=== PATIENT | female | born 1990 | race Caucasian/White ===

== ENCOUNTER 2017-04-17 17:40 | Inpatient (IN) | payer OTHER ==
[~2017-04-17] VITALS: Ht 157.5 cm; Wt 99.6 kg
[2017-04-17 18:11] LABS: RED CELL DISTRIBUTION WIDTH 13.8 % (11.5-14.5)
[2017-04-17 18:19] LABS: CALCIUM 9.1 mg/dL (8.5-10.1); CARBON DIOXIDE 26.2 mmol/L (21-32); CHLORIDE SERUM 105 mmol/L (98-107); CREATININE SERUM 0.8 mg/dL (0.6-1.0); GFR1 > 60 mL/min; GLUCOSE SERUM 110 mg/dL (74-106); POTASSIUM SERUM 3.7 mmol/L (3.5-5.1); SODIUM SERUM 140 mmol/L (136-145)
[2017-04-17 18:23] LABS: ALBUMIN 3.9 g/dL (3.4-5.0); ALKALINE PHOSPHATASE 97 U/L (46-116); ALT/SGPT 57 U/L (14-59); AST/SGOT 38 U/L (15-37); BILIRUBIN TOTAL 0.3 mg/dL (0.20-1.00); TOTAL PROTEIN, SERUM 7.5 g/dL (6.4-8.2)
[2017-04-17 18:24] LABS: BASOPHIL % 0 % (0-2); PLATELET COUNT 422 x10^3mcL (130-400)
[2017-04-17] MEDS ORDERED: BUS5 PO (18:29)
[2017-04-17] MEDS ORDERED: ABILIFY5 M1 PO (18:29)
[2017-04-17] MEDS ORDERED: COLACE100 MG PO (18:30)
[2017-04-17] MEDS ORDERED: IBU400 M1 PO (18:31)
[2017-04-17] MEDS ORDERED: GOOD SENSE OMEP20 MG PO (18:32)
[2017-04-17] MEDS ORDERED: XOPENEX HF0.045 MG/1 INH (18:32)
[2017-04-17] MEDS ORDERED: DULERA1 AR2 INH (18:32)
[2017-04-17] MEDS ORDERED: SPIRIVA18 MC1 INH (18:33)
[2017-04-17] MEDS ORDERED: COMPAZINE10 M1 PO (18:33)
[2017-04-17] MEDS ORDERED: [UNRECOGNIZED DRUG - OTHER] (18:33)
[2017-04-17] MEDS ORDERED: KEN025C (18:34)
[2017-04-17] MEDS ORDERED: TRAZODONE50 M1 PO (18:34)
[2017-04-17 19:52] VITALS: BP 114/78
[2017-04-17 19:55] VITALS: Ht 157.5 cm; Wt 99.6 kg
[2017-04-17 20:55] VITALS: BP 114/78
[2017-04-18 05:42] VITALS: BP 128/93
[2017-04-18 06:27] LABS: RED CELL DISTRIBUTION WIDTH 13.6 % (11.5-14.5)
[2017-04-18 06:33] LABS: CALCIUM 9.4 mg/dL (8.5-10.1); CARBON DIOXIDE 23.4 mmol/L (21-32); CHLORIDE SERUM 104 mmol/L (98-107); CREATININE SERUM 0.9 mg/dL (0.6-1.0); GFR1 > 60 mL/min; GLUCOSE SERUM 129 mg/dL (74-106); POTASSIUM SERUM 4.5 mmol/L (3.5-5.1); SODIUM SERUM 139 mmol/L (136-145)
[2017-04-18 06:39] LABS: BASOPHIL % 0 % (0-2); PLATELET COUNT 402 x10^3mcL (130-400)
[2017-04-18 10:36] VITALS: BP 117/67
[2017-04-18 13:53] VITALS: BP 110/56
[2017-04-18 17:20] VITALS: BP 118/72
[2017-04-18 21:48] VITALS: BP 101/61
[2017-04-19 05:43] VITALS: BP 111/61
[2017-04-19 10:16] VITALS: BP 105/67
[2017-04-19 13:34] VITALS: BP 108/64
[2017-04-19 17:52] VITALS: BP 100/65
[2017-04-19 21:06] VITALS: BP 124/79
[2017-04-20 06:00] VITALS: BP 99/64
[2017-04-20 06:31] LABS: CALCIUM 8.7 mg/dL (8.5-10.1); CHLORIDE SERUM 107 mmol/L (98-107); CREATININE SERUM 0.7 mg/dL (0.6-1.0); GFR1 > 60 mL/min; GLUCOSE SERUM 137 mg/dL (74-106); SODIUM SERUM 140 mmol/L (136-145)
[2017-04-20 06:34] LABS: PLATELET COUNT 390 x10^3mcL (130-400); RED CELL DISTRIBUTION WIDTH 14.1 % (11.5-14.5)
[2017-04-20 06:55] LABS: BASOPHIL % 0 % (0-2)
[2017-04-20 10:00] VITALS: BP 104/71
[2017-04-20 11:30] VITALS: BP 104/71
[2017-04-20 13:35] VITALS: BP 120/78
== END 2017-04-20 14:56 | disposition other institution (70) | DRG 189 ==
LOC: ED 17:40 → DU 18:35
PROVIDERS: Emergency Medicine; Internal Medicine; ADMIT Internal Medicine
DX: J96.01 Acute respiratory failure with hypoxia (principal); J45.901 Unspecified asthma with (acute) exacerbation; Z68.41 Body mass index [BMI] 40.0-44.9, adult; K21.9 Gastro-esophageal reflux disease without esophagitis; Z99.81 Dependence on supplemental oxygen; Z88.8 Allergy status to other drugs, medicaments and biological substances; J20.9 Acute bronchitis, unspecified; J44.9 Chronic obstructive pulmonary disease, unspecified; E66.01 Morbid (severe) obesity due to excess calories; G47.33 Obstructive sleep apnea (adult) (pediatric)
CPT/HCPCS: 36600; 83880; J1100; J1644; J1885; J1956; J2270; J2550; J2920; J3010; J3475; J7030; J7613; J7644; Q0164

== ENCOUNTER 2017-05-03 15:45 | Emergency (ER) | payer OTHER ==
[~2017-05-03] VITALS: Ht 157.5 cm; Wt 98.9 kg
[~2017-05-03 15:45] MED LIST: ABILIFY5 M1 PO; BUS5 PO; COLACE100 MG PO; COMPAZINE10 M1 PO; DULERA1 AR2 INH; GOOD SENSE OMEP20 MG PO; IBU400 M1 PO; KEN025C; SPIRIVA18 MC1 INH; TRAZODONE50 M1 PO; XOPENEX HF0.045 MG/1 INH; [UNRECOGNIZED DRUG - OTHER]
[2017-05-03 16:31] LABS: BASOPHIL % 0.4 % (0-2); PLATELET COUNT 331 x10^3mcL (130-400); RED CELL DISTRIBUTION WIDTH 14.1 % (11.5-14.5)
[2017-05-03 16:36] LABS: CALCIUM 8.9 mg/dL (8.5-10.1); CARBON DIOXIDE 25.8 mmol/L (21-32); CHLORIDE SERUM 104 mmol/L (98-107); CREATININE SERUM 0.9 mg/dL (0.6-1.0); GFR1 > 60 mL/min; GLUCOSE SERUM 113 mg/dL (74-106); POTASSIUM SERUM 3.9 mmol/L (3.5-5.1); SODIUM SERUM 138 mmol/L (136-145)
[2017-05-03 16:41] LABS: ALBUMIN 3.4 g/dL (3.4-5.0); ALKALINE PHOSPHATASE 106 U/L (46-116); ALT/SGPT 40 U/L (14-59); AST/SGOT 19 U/L (15-37); BILIRUBIN TOTAL 0.6 mg/dL (0.20-1.00); TOTAL PROTEIN, SERUM 7.1 g/dL (6.4-8.2)
[2017-05-03 19:50] VITALS: BP 143/91
== END 2017-05-03 20:51 | disposition short-term general hospital (02) ==
LOC: ED 15:45
PROVIDERS: Emergency Medicine
DX: J96.00 Acute respiratory failure, unspecified whether with hypoxia or hypercapnia (principal); J44.1 Chronic obstructive pulmonary disease with (acute) exacerbation
CPT/HCPCS: J0456; J3475; J7040; J7050; J7613; J7644

== ENCOUNTER 2017-06-05 12:50 | Inpatient (IN) | payer OTHER ==
[~2017-06-05] VITALS: Ht 157.5 cm; Wt 102.1 kg
[2017-06-05] MEDS ORDERED: PRILOSEC OTC20 M1 PO (14:09)
[2017-06-05 14:11] LABS: PLATELET COUNT 296 x10^3mcL (130-400); RED CELL DISTRIBUTION WIDTH 13.7 % (11.5-14.5)
[2017-06-05 14:18] LABS: BASOPHIL % 0 % (0-2)
[2017-06-05 14:25] LABS: CALCIUM 7.6 mg/dL (8.5-10.1); CARBON DIOXIDE 18.4 mmol/L (21-32); CHLORIDE SERUM 109 mmol/L (98-107); GFR1 > 60 mL/min; GLUCOSE SERUM 133 mg/dL (74-106); SODIUM SERUM 142 mmol/L (136-145)
[2017-06-05 14:29] LABS: POTASSIUM SERUM 2.8 mmol/L (3.5-5.1)
[2017-06-05 14:47] LABS: AMPHETAMINE QUAL UR NONE DETECTED (NEG <=1000)
[2017-06-05 17:01] VITALS: BP 98/50
[2017-06-05 21:05] VITALS: BP 98/55
[2017-06-06 05:15] VITALS: BP 90/57
[2017-06-06 09:01] VITALS: BP 114/80
[2017-06-06 11:26] LABS: BASOPHIL % 0.3 % (0-2); PLATELET COUNT 323 x10^3mcL (130-400); RED CELL DISTRIBUTION WIDTH 13.7 % (11.5-14.5)
[2017-06-06 11:43] LABS: AMYLASE 43 U/L (25-115); CALCIUM 8.9 mg/dL (8.5-10.1); CARBON DIOXIDE 24.9 mmol/L (21-32); CHLORIDE SERUM 109 mmol/L (98-107); CHOLESTEROL 139 mg/dL (<200); CHOLESTEROL/HDL RATIO 3.4; CREATININE SERUM 0.8 mg/dL (0.6-1.0); GFR1 > 60 mL/min; GLUCOSE SERUM 112 mg/dL (74-106); HDL CHOLESTEROL 41 mg/dL (40-60); LIPASE 117 IU/L (73-393); POTASSIUM SERUM 4.2 mmol/L (3.5-5.1); SODIUM SERUM 143 mmol/L (136-145); TRIGLYCERIDES 178 mg/dL (<150)
[2017-06-06 13:00] VITALS: BP 121/85
[2017-06-06 17:50] VITALS: BP 99/66
[2017-06-06 21:04] VITALS: BP 97/56
[2017-06-06 23:48] LABS: microscopic required? NO
[2017-06-07 00:32] LABS: UA SPECIFIC GRAVITY 1.015 (1.005-1.035); urine erythrocyte NEGATIVE (NEGATIVE)
[2017-06-07 04:55] VITALS: BP 94/57
[2017-06-07 09:47] VITALS: BP 103/68
[2017-06-07 11:27] VITALS: BP 103/68
[2017-06-07] MEDS ORDERED: METOPROLOL TART25 M1 PO (13:40)
[2017-06-07 14:11] VITALS: BP 101/60
== END 2017-06-07 18:34 | disposition other institution (70) | DRG 309 ==
LOC: ED 12:50 → DU 15:05
PROVIDERS: Emergency Medicine; Internal Medicine Cardiovascular Disease; ADMIT Internal Medicine
PROC: B24BZZ4 Ultrasonography of Heart with Aorta, Transesophageal (ICD-10-PCS; principal; 2017-06-07 09:30)
DX: I49.9 Cardiac arrhythmia, unspecified (principal); I47.1 Supraventricular tachycardia; E87.2 Acidosis; J45.901 Unspecified asthma with (acute) exacerbation; J44.9 Chronic obstructive pulmonary disease, unspecified; K21.9 Gastro-esophageal reflux disease without esophagitis; E87.6 Hypokalemia; Z99.81 Dependence on supplemental oxygen; Z88.8 Allergy status to other drugs, medicaments and biological substances
CPT/HCPCS: J0153; J1885; J2250; J2270; J3010; J3480; J3490; J7030; J7050; Q0092; Q9967

== ENCOUNTER 2017-06-19 14:33 | Inpatient (IN) | payer OTHER ==
[~2017-06-19] VITALS: Ht 157.5 cm; Wt 98.1 kg
[~2017-06-19 14:33] MED LIST changes: +METOPROLOL TART25 M1 PO; +PRILOSEC OTC20 M1 PO
[2017-06-19 14:41] VITALS: Ht 157.5 cm; Wt 98.1 kg
[2017-06-19 15:12] LABS: BASOPHIL % 0.5 % (0-2); PLATELET COUNT 358 x10^3mcL (130-400); RED CELL DISTRIBUTION WIDTH 13.6 % (11.5-14.5)
[2017-06-19 15:18] LABS: CALCIUM 9.1 mg/dL (8.5-10.1); CARBON DIOXIDE 24.9 mmol/L (21-32); CHLORIDE SERUM 105 mmol/L (98-107); CREATININE SERUM 0.8 mg/dL (0.6-1.0); GFR1 > 60 mL/min; GLUCOSE SERUM 96 mg/dL (74-106); POTASSIUM SERUM 4.1 mmol/L (3.5-5.1); SODIUM SERUM 139 mmol/L (136-145)
[2017-06-19 15:23] LABS: ALBUMIN 3.7 g/dL (3.4-5.0); ALKALINE PHOSPHATASE 87 U/L (46-116); ALT/SGPT 29 U/L (14-59); AST/SGOT 21 U/L (15-37); BILIRUBIN TOTAL 0.7 mg/dL (0.20-1.00); TOTAL PROTEIN, SERUM 7.2 g/dL (6.4-8.2)
[2017-06-19 17:46] VITALS: BP 122/80
[2017-06-19 18:12] VITALS: BP 122/80
[2017-06-19 19:34] VITALS: BP 122/80
[2017-06-20 05:25] VITALS: BP 108/69
[2017-06-20 10:06] VITALS: BP 104/73
[2017-06-20 15:22] VITALS: BP 99/62
[2017-06-20 18:26] VITALS: BP 113/71
[2017-06-20 21:00] VITALS: BP 102/59
[2017-06-21 05:37] VITALS: BP 103/57
[2017-06-21 07:51] LABS: CARBON DIOXIDE 22.8 mmol/L (21-32); CHLORIDE SERUM 106 mmol/L (98-107); CREATININE SERUM 0.9 mg/dL (0.6-1.0); GFR1 > 60 mL/min; GLUCOSE SERUM 146 mg/dL (74-106); PLATELET COUNT 366 x10^3mcL (130-400); RED CELL DISTRIBUTION WIDTH 13.9 % (11.5-14.5); SODIUM SERUM 139 mmol/L (136-145)
[2017-06-21 07:52] LABS: BASOPHIL % 0 % (0-2)
[2017-06-21 10:43] VITALS: BP 110/59
[2017-06-21 13:36] VITALS: BP 110/59
[2017-06-21 14:18] VITALS: BP 104/76
== END 2017-06-21 17:00 | disposition other institution (70) | DRG 189 ==
LOC: ED 14:33 → DU 16:51
PROVIDERS: Emergency Medicine; Internal Medicine
DX: J96.20 Acute and chronic respiratory failure, unspecified whether with hypoxia or hypercapnia (principal); J44.1 Chronic obstructive pulmonary disease with (acute) exacerbation; J45.901 Unspecified asthma with (acute) exacerbation; J44.0 Chronic obstructive pulmonary disease with (acute) lower respiratory infection; I50.9 Heart failure, unspecified; J20.9 Acute bronchitis, unspecified; I11.0 Hypertensive heart disease with heart failure; F41.9 Anxiety disorder, unspecified; I25.10 Atherosclerotic heart disease of native coronary artery without angina pectoris; Z99.81 Dependence on supplemental oxygen; Z68.35 Body mass index [BMI] 35.0-35.9, adult; Z88.8 Allergy status to other drugs, medicaments and biological substances
CPT/HCPCS: 36600; 83880; 85378; 94150; J1644; J1956; J2920; J2930; J7050; J7613; J7626; J7644

== ENCOUNTER 2017-07-18 12:31 | Emergency (ER) | payer OTHER ==
[~2017-07-18] VITALS: Ht 157.5 cm; Wt 99.8 kg
[2017-07-18 12:33] VITALS: Ht 157.5 cm; Wt 99.8 kg
[2017-07-18] MEDS ORDERED: DIGOXIN0.125 M1 PO (12:59)
[2017-07-18] MEDS ORDERED: APAP500 MG PO (12:59)
[2017-07-18] MEDS ORDERED: CLOTRIMAZOLE TR10 M1 PO (12:59)
[2017-07-18] MEDS ORDERED: LAMOTRIGINE25 MG PO (13:00)
[2017-07-18] MEDS ORDERED: ATROVENT H0.017 MG/1 INH (13:00)
[2017-07-18] MEDS ORDERED: DOCUSATE SODIUM1 TA1 PO (13:00)
[2017-07-18 13:12] LABS: CALCIUM 9.4 mg/dL (8.5-10.1); CARBON DIOXIDE 24.5 mmol/L (21-32); CHLORIDE SERUM 104 mmol/L (98-107); CREATININE SERUM 0.9 mg/dL (0.6-1.0); GFR1 > 60 mL/min; GLUCOSE SERUM 101 mg/dL (74-106); POTASSIUM SERUM 3.7 mmol/L (3.5-5.1); SODIUM SERUM 140 mmol/L (136-145)
[2017-07-18 13:16] LABS: ALBUMIN 3.8 g/dL (3.4-5.0); ALKALINE PHOSPHATASE 97 U/L (46-116); ALT/SGPT 26 U/L (14-59); AST/SGOT 20 U/L (15-37); BILIRUBIN TOTAL 0.87 mg/dL (0.20-1.00); CHOLESTEROL 163 mg/dL (<200); HDL CHOLESTEROL 35 mg/dL (40-60); PHOSPHOROUS 2.6 mg/dL (2.5-4.9); TOTAL PROTEIN, SERUM 7.5 g/dL (6.4-8.2); URIC ACID 4.1 mg/dL (2.6-6.0)
[2017-07-18 13:24] LABS: BASOPHIL % 0.3 % (0-2); PLATELET COUNT 369 x10^3mcL (130-400); RED CELL DISTRIBUTION WIDTH 14.2 % (11.5-14.5)
[2017-07-18 16:10] VITALS: BP 117/69
== END 2017-07-18 16:32 | disposition home or self-care (01) ==
LOC: ED 12:31
PROVIDERS: Emergency Medicine
DX: J45.901 Unspecified asthma with (acute) exacerbation (principal); K21.9 Gastro-esophageal reflux disease without esophagitis; I50.9 Heart failure, unspecified; F43.10 Post-traumatic stress disorder, unspecified; Z88.8 Allergy status to other drugs, medicaments and biological substances
CPT/HCPCS: 36600; 83880; J1885; J2930; J7613; J7620; J7644; Q0092

== ENCOUNTER 2017-11-21 12:48 | Emergency (ER) | payer OTHER ==
[~2017-11-21] VITALS: Ht 157.5 cm; Wt 86.2 kg
[~2017-11-21 12:48] MED LIST changes: +APAP500 MG PO; +ATROVENT H0.017 MG/1 INH; +CLOTRIMAZOLE TR10 M1 PO; +DIGOXIN0.125 M1 PO; +DOCUSATE SODIUM1 TA1 PO; +LAMOTRIGINE25 MG PO
[2017-11-21 12:51] VITALS: Ht 157.5 cm; Wt 86.2 kg
[2017-11-21 13:38] LABS: BASOPHIL % 0.3 % (0-2); PLATELET COUNT 366 x10^3mcL (130-400)
[2017-11-21 13:41] LABS: RED CELL DISTRIBUTION WIDTH 15.7 % (11.5-14.5)
[2017-11-21 13:53] LABS: SODIUM SERUM 141 mmol/L (136-145)
[2017-11-21 13:55] LABS: ALBUMIN 3.1 g/dL (3.4-5.0); CARBON DIOXIDE 22.1 mmol/L (21-32); CHLORIDE SERUM 106 mmol/L (98-107); GFR1 > 60 mL/min; GLUCOSE SERUM 204 mg/dL (74-106); TOTAL PROTEIN, SERUM 6.3 g/dL (6.4-8.2)
[2017-11-21 13:56] LABS: ALKALINE PHOSPHATASE 99 U/L (46-116); ALT/SGPT 23 U/L (14-59); AST/SGOT 20 U/L (15-37); BILIRUBIN TOTAL 0.3 mg/dL (0.20-1.00); CALCIUM 7.6 mg/dL (8.5-10.1); POTASSIUM SERUM 2.6 mmol/L (3.5-5.1)
[2017-11-21] MEDS ORDERED: APAP500 MG PO (14:20)
[2017-11-21] MEDS ORDERED: BUSPIRONE HCL15 MG PO (14:21)
[2017-11-21] MEDS ORDERED: TUMS CH (14:22)
[2017-11-21] MEDS ORDERED: DIGOXIN0.25 M1 PO (14:23)
[2017-11-21] MEDS ORDERED: BENADRYL ALLERG25 M1 PO (14:24)
[2017-11-21] MEDS ORDERED: COMINH INH (14:25)
[2017-11-21] MEDS ORDERED: LAMICTAL XR50 MG PO (14:26)
[2017-11-21] MEDS ORDERED: LATUDA40 M1 PO (14:26)
[2017-11-21] MEDS ORDERED: DULERA1 AR2 INH (14:27)
[2017-11-21] MEDS ORDERED: TOPROL XL25 MG PO (14:27)
[2017-11-21] MEDS ORDERED: MONTELUKAST SOD10 M1 PO (14:28)
[2017-11-21] MEDS ORDERED: PRILOSEC OTC20 M1 PO (14:29)
[2017-11-21] MEDS ORDERED: ZOLOFT50 MG PO (14:31)
[2017-11-21] MEDS ORDERED: ZOLOFT25 MG PO (14:31)
[2017-11-21] MEDS ORDERED: TRAZODONE50 M1 PO (14:32)
[2017-11-21 18:23] VITALS: BP 129/59
== END 2017-11-21 18:23 | disposition short-term general hospital (02) ==
LOC: ED 12:48
DX: I47.1 Supraventricular tachycardia (principal); E87.6 Hypokalemia; J44.9 Chronic obstructive pulmonary disease, unspecified; Z88.8 Allergy status to other drugs, medicaments and biological substances
CPT/HCPCS: 83880; J0153; J1885; J3480; J7030; J7060; Q0092

== ENCOUNTER 2018-01-22 20:04 | Inpatient (IN) | payer OTHER ==
[~2018-01-22] VITALS: Ht 157.5 cm; Wt 84.5 kg
[~2018-01-22 20:04] MED LIST changes: +BENADRYL ALLERG25 M1 PO; +BUSPIRONE HCL15 MG PO; +COMINH INH; +DIGOXIN0.25 M1 PO; +LAMICTAL XR50 MG PO; +LATUDA40 M1 PO; +MONTELUKAST SOD10 M1 PO; +TOPROL XL25 MG PO; +TUMS CH; +ZOLOFT25 MG PO; +ZOLOFT50 MG PO
[2018-01-22 20:17] VITALS: Ht 157.5 cm; Wt 84.5 kg
[2018-01-22 21:06] LABS: BASOPHIL % 0.5 % (0-2); PLATELET COUNT 311 x10^3mcL (130-400); RED CELL DISTRIBUTION WIDTH 18.6 % (11.5-14.5)
[2018-01-22 21:18] LABS: CALCIUM 7.8 mg/dL (8.5-10.1); CARBON DIOXIDE 25.4 mmol/L (21-32); CHLORIDE SERUM 105 mmol/L (98-107); CREATININE SERUM 0.9 mg/dL (0.6-1.0); GFR1 > 60 mL/min; GLUCOSE SERUM 108 mg/dL (74-106); POTASSIUM SERUM 3.3 mmol/L (3.5-5.1); SODIUM SERUM 139 mmol/L (136-145)
[2018-01-22 21:30] LABS: ALBUMIN 3.5 g/dL (3.4-5.0); ALKALINE PHOSPHATASE 112 U/L (46-116); ALT/SGPT 20 U/L (14-59); AST/SGOT 15 U/L (15-37); BILIRUBIN TOTAL 0.4 mg/dL (0.20-1.00); FREE T4 1.12 ng/dL (0.76-1.46); LIPASE 156 IU/L (73-393); TOTAL PROTEIN, SERUM 6.7 g/dL (6.4-8.2)
[2018-01-22 21:48] LABS: AMPHETAMINE QUAL UR NONE DETECTED (See below)
[2018-01-23 01:28] LABS: MAGNESIUM 1.9 mg/dL (1.8-2.4)
[2018-01-23 02:19] VITALS: BP 110/76
[2018-01-23 05:51] VITALS: BP 110/72
[2018-01-23 07:26] LABS: microscopic required? NO
[2018-01-23 07:50] LABS: UA SPECIFIC GRAVITY <=1.005 (1.005-1.035); urine erythrocyte NEGATIVE (NEGATIVE)
[2018-01-23 11:00] VITALS: BP 138/88
[2018-01-23 18:22] VITALS: BP 115/77
[2018-01-23 21:08] VITALS: BP 120/77
[2018-01-24 05:25] VITALS: BP 105/74
[2018-01-24 07:46] LABS: CALCIUM 9.4 mg/dL (8.5-10.1); CARBON DIOXIDE 23.9 mmol/L (21-32); CHLORIDE SERUM 104 mmol/L (98-107); CREATININE SERUM 0.9 mg/dL (0.6-1.0); GFR1 > 60 mL/min; GLUCOSE SERUM 153 mg/dL (74-106); POTASSIUM SERUM 4.6 mmol/L (3.5-5.1); SODIUM SERUM 137 mmol/L (136-145)
[2018-01-24 07:48] LABS: BASOPHIL % 0.1 % (0-2); PLATELET COUNT 313 x10^3mcL (130-400)
[2018-01-24 08:06] LABS: RED CELL DISTRIBUTION WIDTH 18.6 % (11.5-14.5)
[2018-01-24 09:08] VITALS: BP 106/78
[2018-01-24 11:29] VITALS: BP 113/77
[2018-01-24 13:07] VITALS: BP 113/77
== END 2018-01-24 17:02 | disposition other institution (70) | DRG 189 ==
LOC: ED 20:04 → DU 01-23 00:50
PROVIDERS: Emergency Medicine; Internal Medicine
DX: J96.01 Acute respiratory failure with hypoxia (principal); Q33.6 Congenital hypoplasia and dysplasia of lung; I47.1 Supraventricular tachycardia; J44.1 Chronic obstructive pulmonary disease with (acute) exacerbation; J44.0 Chronic obstructive pulmonary disease with (acute) lower respiratory infection; F43.10 Post-traumatic stress disorder, unspecified; I25.10 Atherosclerotic heart disease of native coronary artery without angina pectoris; I50.9 Heart failure, unspecified; K21.9 Gastro-esophageal reflux disease without esophagitis; J20.9 Acute bronchitis, unspecified; E87.6 Hypokalemia; I48.91 Unspecified atrial fibrillation; I11.0 Hypertensive heart disease with heart failure; Z99.81 Dependence on supplemental oxygen; Z68.36 Body mass index [BMI] 36.0-36.9, adult; Z88.8 Allergy status to other drugs, medicaments and biological substances; Z82.49 Family history of ischemic heart disease and other diseases of the circulatory system; Z79.899 Other long term (current) drug therapy
CPT/HCPCS: 83880; 84439; 85378; J1644; J1956; J2270; J2920; J3010; J7040; J7620; J7626; Q0092

== ENCOUNTER 2018-03-11 20:25 | Inpatient (IN) | payer OTHER ==
[~2018-03-11] VITALS: Ht 157.5 cm; Wt 84.4 kg
[2018-03-11 20:34] VITALS: Ht 157.5 cm; Wt 84.4 kg
[2018-03-11 21:09] LABS: BASOPHIL % 0.6 % (0-2); PLATELET COUNT 345 x10^3mcL (130-400)
[2018-03-11 21:12] LABS: RED CELL DISTRIBUTION WIDTH 17.3 % (11.5-14.5)
[2018-03-11 21:19] LABS: CALCIUM 8.8 mg/dL (8.5-10.1); CHLORIDE SERUM 103 mmol/L (98-107); GFR1 > 60 mL/min; GLUCOSE SERUM 94 mg/dL (74-106); POTASSIUM SERUM 3.3 mmol/L (3.5-5.1); SODIUM SERUM 140 mmol/L (136-145)
[2018-03-11 21:23] LABS: ALBUMIN 3.8 g/dL (3.4-5.0); ALKALINE PHOSPHATASE 101 U/L (46-116); ALT/SGPT 26 U/L (14-59); AST/SGOT 19 U/L (15-37); BILIRUBIN TOTAL 0.45 mg/dL (0.20-1.00); LIPASE 97 IU/L (73-393); MAGNESIUM 1.6 mg/dL (1.8-2.4); TOTAL PROTEIN, SERUM 7.2 g/dL (6.4-8.2)
[2018-03-11 21:48] LABS: AMPHETAMINE QUAL UR NONE DETECTED (See below)
[2018-03-12] VITALS (8 sets, daily range): BP systolic 92–136; BP diastolic 55–86
[2018-03-12] MEDS ORDERED: CORLANOR5 MG PO (01:13)
[2018-03-12] MEDS ORDERED: PROA PO (01:14)
[2018-03-12] MEDS ORDERED: LOT1C TOP (01:16)
[2018-03-12] MEDS ORDERED: BUSPIRONE HCL15 MG PO (01:18)
[2018-03-12] MEDS ORDERED: BENADRYL ALLERG25 M1 PO (01:19)
[2018-03-12] MEDS ORDERED: TRAZODONE50 M1 PO (01:20)
[2018-03-12] MEDS ORDERED: LATUDA40 M1 PO (01:21)
[2018-03-12] MEDS ORDERED: XOPENEX HF0.045 MG/1 INH (01:22)
[2018-03-12] MEDS ORDERED: MAPAP500 M3 PO (01:24)
[2018-03-12 01:46] LABS: CHOLESTEROL/HDL RATIO 4.9
[2018-03-12 02:23] LABS: UA SPECIFIC GRAVITY <=1.005 (1.005-1.035); microscopic required? YES; urine erythrocyte NEGATIVE (NEGATIVE)
[2018-03-13 04:52] VITALS: BP 96/60
[2018-03-13 06:45] LABS: BASOPHIL % 0.6 % (0-2); PLATELET COUNT 323 x10^3mcL (130-400)
[2018-03-13 06:48] LABS: RED CELL DISTRIBUTION WIDTH 17.3 % (11.5-14.5)
[2018-03-13 07:08] LABS: CALCIUM 8.7 mg/dL (8.5-10.1); CARBON DIOXIDE 25.1 mmol/L (21-32); CHLORIDE SERUM 105 mmol/L (98-107); CREATININE SERUM 0.8 mg/dL (0.6-1.0); GFR1 > 60 mL/min; GLUCOSE SERUM 90 mg/dL (74-106); POTASSIUM SERUM 4.1 mmol/L (3.5-5.1); SODIUM SERUM 139 mmol/L (136-145)
[2018-03-13 09:16] VITALS: BP 101/57
[2018-03-13 13:00] VITALS: BP 123/60
[2018-03-13 16:11] VITALS: BP 115/76
[2018-03-13 17:12] VITALS: BP 116/71
[2018-03-13 20:49] VITALS: BP 105/65
[2018-03-14 05:54] VITALS: BP 101/59
[2018-03-14 08:51] VITALS: BP 117/70
[2018-03-14 12:44] VITALS: BP 111/70
[2018-03-14 13:53] VITALS: BP 111/70
[2018-03-14 14:08] VITALS: BP 111/70
== END 2018-03-14 15:25 | disposition other institution (70) | DRG 308 ==
LOC: ED 20:25 → DU 03-12 01:13 → IC 03-13 14:07 → DU 03-13 16:11
PROVIDERS: Emergency Medicine; Internal Medicine
DX: I47.1 Supraventricular tachycardia (principal); J96.20 Acute and chronic respiratory failure, unspecified whether with hypoxia or hypercapnia; T88.6XXA Anaphylactic reaction due to adverse effect of correct drug or medicament properly administered, initial encounter; E87.6 Hypokalemia; Y84.8 Other medical procedures as the cause of abnormal reaction of the patient, or of later complication, without mention of misadventure at the time of the procedure; Y92.238 Other place in hospital as the place of occurrence of the external cause; Z79.899 Other long term (current) drug therapy; E83.42 Hypomagnesemia; E78.5 Hyperlipidemia, unspecified; G47.33 Obstructive sleep apnea (adult) (pediatric); F41.9 Anxiety disorder, unspecified; J44.9 Chronic obstructive pulmonary disease, unspecified; I50.9 Heart failure, unspecified; I11.0 Hypertensive heart disease with heart failure; I25.10 Atherosclerotic heart disease of native coronary artery without angina pectoris; E11.9 Type 2 diabetes mellitus without complications; I48.91 Unspecified atrial fibrillation; I95.9 Hypotension, unspecified; Z88.8 Allergy status to other drugs, medicaments and biological substances; Z82.49 Family history of ischemic heart disease and other diseases of the circulatory system; Z79.82 Long term (current) use of aspirin; Z87.01 Personal history of pneumonia (recurrent)
CPT/HCPCS: 83880; A4570; J1200; J1885; J2270; J2785; J2920; J3475; J3490; J7030; J7626

== ENCOUNTER 2018-03-22 17:38 | Inpatient (IN) | payer OTHER ==
[~2018-03-22] VITALS: Ht 157.5 cm; Wt 82.0 kg
[~2018-03-22 17:38] MED LIST changes: +CORLANOR5 MG PO; +LOT1C TOP; +MAPAP500 M3 PO; +PROA PO
[2018-03-22 17:57] VITALS: Ht 157.5 cm; Wt 82.0 kg
[2018-03-22 18:23] LABS: BASOPHIL % 1.3 % (0-2); PLATELET COUNT 336 x10^3mcL (130-400); RED CELL DISTRIBUTION WIDTH 17.1 % (11.5-14.5)
[2018-03-22 18:47] LABS: T4(THYROXINE) 9.8 ug/dL (4.7-13.3)
[2018-03-22 19:06] LABS: CALCIUM 8.3 mg/dL (8.5-10.1); CARBON DIOXIDE 22.1 mmol/L (21-32); CHLORIDE SERUM 104 mmol/L (98-107); GFR1 > 60 mL/min; GLUCOSE SERUM 99 mg/dL (74-106); POTASSIUM SERUM 3.1 mmol/L (3.5-5.1); SODIUM SERUM 141 mmol/L (136-145)
[2018-03-22 19:11] LABS: ALBUMIN 3.7 g/dL (3.4-5.0); ALKALINE PHOSPHATASE 98 U/L (46-116); ALT/SGPT 41 U/L (14-59); AST/SGOT 24 U/L (15-37); BILIRUBIN TOTAL 0.42 mg/dL (0.20-1.00)
[2018-03-22 19:16] LABS: AMPHETAMINE QUAL UR NONE DETECTED (See below)
[2018-03-22 22:33] VITALS: BP 107/54
[2018-03-22 23:11] LABS: CHOLESTEROL/HDL RATIO 4.8; MAGNESIUM 1.8 mg/dL (1.8-2.4)
[2018-03-23 05:30] VITALS: BP 109/67
[2018-03-23 06:40] LABS: CALCIUM 9.2 mg/dL (8.5-10.1); CARBON DIOXIDE 21.5 mmol/L (21-32); CHLORIDE SERUM 106 mmol/L (98-107); CREATININE SERUM 0.9 mg/dL (0.6-1.0); GFR1 > 60 mL/min; GLUCOSE SERUM 141 mg/dL (74-106); POTASSIUM SERUM 4.6 mmol/L (3.5-5.1); SODIUM SERUM 139 mmol/L (136-145)
[2018-03-23 06:53] LABS: BASOPHIL % 0.1 % (0-2); PLATELET COUNT 355 x10^3mcL (130-400)
[2018-03-23 08:35] VITALS: BP 111/68
[2018-03-23 13:24] VITALS: BP 107/73
[2018-03-23 17:24] VITALS: BP 108/73
[2018-03-23 20:52] VITALS: BP 109/71
[2018-03-24 03:10] LABS: microscopic required? NO
[2018-03-24 03:45] LABS: UA SPECIFIC GRAVITY <=1.005 (1.005-1.035); urine erythrocyte NEGATIVE (NEGATIVE)
[2018-03-24 06:09] VITALS: BP 90/50
[2018-03-24 09:06] VITALS: BP 107/68
[2018-03-24 12:14] VITALS: BP 106/70
[2018-03-24 17:10] VITALS: BP 103/62
[2018-03-24 17:21] VITALS: BP 103/62
== END 2018-03-24 20:14 | disposition other institution (70) | DRG 310 ==
LOC: ED 17:38 → DU 21:16
PROVIDERS: Emergency Medicine; Internal Medicine
DX: I47.1 Supraventricular tachycardia (principal); F43.10 Post-traumatic stress disorder, unspecified; E87.6 Hypokalemia; G47.33 Obstructive sleep apnea (adult) (pediatric); K21.9 Gastro-esophageal reflux disease without esophagitis; J45.909 Unspecified asthma, uncomplicated; F32.9 Major depressive disorder, single episode, unspecified; F41.9 Anxiety disorder, unspecified; I50.9 Heart failure, unspecified; R09.1 Pleurisy; R06.89 Other abnormalities of breathing; Z91.041 Radiographic dye allergy status
CPT/HCPCS: 83880; J1200; J2060; J2405; J2930; J3490; Q0092

== ENCOUNTER 2018-05-16 13:17 | Inpatient (IN) | payer OTHER ==
[~2018-05-16] VITALS: Ht 157.5 cm; Wt 85.0 kg
[2018-05-16 13:21] VITALS: Ht 157.5 cm; Wt 85.0 kg
[2018-05-16 13:53] LABS: BASOPHIL % 0.6 % (0-2); PLATELET COUNT 321 x10^3mcL (130-400)
[2018-05-16 13:54] LABS: RED CELL DISTRIBUTION WIDTH 15.3 % (11.5-14.5)
[2018-05-16 14:23] LABS: CALCIUM 8.5 mg/dL (8.5-10.1); CARBON DIOXIDE 25.9 mmol/L (21-32); CHLORIDE SERUM 104 mmol/L (98-107); CREATININE SERUM 0.9 mg/dL (0.6-1.0); GFR1 > 60 mL/min; GLUCOSE SERUM 105 mg/dL (74-106); POTASSIUM SERUM 3.1 mmol/L (3.5-5.1); SODIUM SERUM 138 mmol/L (136-145)
[2018-05-16 14:46] LABS: ALBUMIN 3.7 g/dL (3.4-5.0); ALKALINE PHOSPHATASE 105 U/L (46-116); ALT/SGPT 14 U/L (14-59); AST/SGOT 6 U/L (15-37); BILIRUBIN TOTAL 0.22 mg/dL (0.20-1.00); TOTAL PROTEIN, SERUM 6.9 g/dL (6.4-8.2)
[2018-05-16 17:10] VITALS: BP 112/69
[2018-05-16 17:46] VITALS: BP 112/69
[2018-05-16 21:55] VITALS: BP 108/66
[2018-05-17 05:59] VITALS: BP 131/81
[2018-05-17 08:15] VITALS: BP 98/68
[2018-05-17 12:25] VITALS: BP 116/64
[2018-05-17 14:45] LABS: PLATELET COUNT 353 x10^3mcL (130-400)
[2018-05-17 14:52] LABS: RED CELL DISTRIBUTION WIDTH 15.7 % (11.5-14.5)
[2018-05-17 14:53] LABS: CALCIUM 9.3 mg/dL (8.5-10.1); CARBON DIOXIDE 22.9 mmol/L (21-32); CHLORIDE SERUM 104 mmol/L (98-107); GFR1 > 60 mL/min; GLUCOSE SERUM 167 mg/dL (74-106); POTASSIUM SERUM 3.8 mmol/L (3.5-5.1); SODIUM SERUM 138 mmol/L (136-145)
[2018-05-17 15:08] LABS: BAND NEUTROPHIL 8 % (0-10); BASOPHIL 0 % (0-2); MONOCYTE 2 % (0-7); SEGMENTED NEUTROPHILS 84 % (37-75); rbc morphology (normal/abnorm) ABNORMAL (NORMAL)
[2018-05-17 15:09] LABS: PLATELET MORPHOLOGY PLATELETS NORMAL
[2018-05-17 17:00] VITALS: BP 121/71
[2018-05-17 21:07] VITALS: BP 113/71
[2018-05-18 06:01] VITALS: BP 114/76
[2018-05-18 08:00] VITALS: BP 116/78
[2018-05-18 10:00] VITALS: BP 125/71
[2018-05-18 13:30] VITALS: BP 106/68
[2018-05-18 15:58] VITALS: BP 106/68
[2018-05-18 17:34] VITALS: BP 107/76
== END 2018-05-18 20:40 | disposition other institution (70) | DRG 189 ==
LOC: ED 13:17 → DU 15:32
PROVIDERS: Emergency Medicine; Internal Medicine
DX: J96.21 Acute and chronic respiratory failure with hypoxia (principal); J45.901 Unspecified asthma with (acute) exacerbation; Z88.6 Allergy status to analgesic agent; Z91.041 Radiographic dye allergy status; Z88.8 Allergy status to other drugs, medicaments and biological substances; F32.9 Major depressive disorder, single episode, unspecified; J44.9 Chronic obstructive pulmonary disease, unspecified; K21.9 Gastro-esophageal reflux disease without esophagitis; F31.9 Bipolar disorder, unspecified; F20.9 Schizophrenia, unspecified; F41.9 Anxiety disorder, unspecified; D72.829 Elevated white blood cell count, unspecified
CPT/HCPCS: 36600; J2270; J2920; J2930; J7620; Q0092; Q0163

== ENCOUNTER 2018-06-25 12:08 | Inpatient (IN) | payer OTHER | END 2018-07-02 14:15 | disposition other institution (70) | LOC: ED 12:08 → DU 13:23 → ED 12:08 → DU 13:23 → ED 12:08 → DU 13:23 → ED 12:08 → DU 13:23 → ED 12:08 → DU 13:23 | PROC: 5A09357 Assistance with Respiratory Ventilation, Less than 24 Consecutive Hours, Continuous Positive Airway Pressure (ICD-10-PCS; principal; 2018-06-27) | PROC: 5A09357 Assistance with Respiratory Ventilation, Less than 24 Consecutive Hours, Continuous Positive Airway Pressure (ICD-10-PCS; 2018-06-29) | DX: J96.01 Acute respiratory failure with hypoxia (principal); J45.901 Unspecified asthma with (acute) exacerbation; E66.2 Morbid (severe) obesity with alveolar hypoventilation; I25.10 Atherosclerotic heart disease of native coronary artery without angina pectoris; K27.9 Peptic ulcer, site unspecified, unspecified as acute or chronic, without hemorrhage or perforation; F41.9 Anxiety disorder, unspecified; E78.5 Hyperlipidemia, unspecified; Z68.36 Body mass index [BMI] 36.0-36.9, adult ==

== ENCOUNTER 2018-12-27 16:28 | Inpatient (IN) | payer OTHER ==
[~2018-12-27] VITALS: Ht 165.1 cm; Wt 81.6 kg
--- NOTE | 2018-12-27 16:39 | NUR ---
PT BIB [facility] ON BIPAP FROM [facility] FOR SOB, PT TRANSFERRED TO BED AND HOSPITAL BIPAP. PER MEDIC, PT HAD A SUDDEN ONSET OF SOB WHILE IN SHOWER THIS AFTERNOON. PT HAS HER OWN O2 WITH A NC AND WAS AT 79%. THE PT WAS PLACED ON A NRB MASK AT 15L AND WENT UP TO 87%. UPON ARRIVAL OF [facility], PT WAS PLACED ON BIPAP WITH IMPROVEMENT UP TO 99/100% UPON ARRIVAL HERE. PT HAD STATED TO [facility] PERSONEL THAT THIS EPISODE WAS LIKE HER PREVIOUS EPISODES OF COPD EXAXERBATION. PT NOTED TO BE AAOX4 WITH SHALLOW BREATHS AT 28/30 WITH ABRAHAM WHEEZING. PT ALSO WITH C/O 9/10 PAIN TO MID CHEST FROM SOB/COUGHING.
[2018-12-27 16:55] LABS: BASOPHIL % 0.7 % (0-2); PLATELET COUNT 342 x10^3mcL (130-400); RED CELL DISTRIBUTION WIDTH 14.8 % (11.5-14.5)
[2018-12-27 17:10] LABS: ALBUMIN 3.6 g/dL (3.4-5.0); ALKALINE PHOSPHATASE 118 U/L (46-116); ALT/SGPT 33 U/L (14-59); AST/SGOT 19 U/L (15-37); BILIRUBIN TOTAL 0.23 mg/dL (0.20-1.00); CALCIUM 9.5 mg/dL (8.5-10.1); CARBON DIOXIDE 20.6 mmol/L (21-32); CHLORIDE SERUM 104 mmol/L (98-107); CREATININE SERUM 0.9 mg/dL (0.6-1.0); GFR1 > 60 mL/min; GLUCOSE SERUM 157 mg/dL (74-106); SODIUM SERUM 141 mmol/L (136-145); TOTAL PROTEIN, SERUM 7.3 g/dL (6.4-8.2)
[2018-12-27 17:14] LABS: POTASSIUM SERUM 2.9 mmol/L (3.5-5.1)
--- NOTE | 2018-12-27 17:18 | NUR ---
UNABLE TO FLUSH LEFT AC IV. TOOK OUT IV AND WILL PLACE A NEW IV
--- NOTE | 2018-12-27 17:35 | NUR ---
PATIENT REQUESTS FOR BEDSIDE COMMODE. ABLE TO AMBULATE FROM [facility] TO [facility]. PATIENT ABLE TO AMBULATE FROM [facility] BACK TO [facility]
--- NOTE | 2018-12-27 17:49 | NUR ---
PATIENT STS HAVING INCREASE PAIN IN THE CHEST AND RIB AREA. MD AWARE
[2018-12-27 17:55] VITALS: BP 132/86
--- NOTE | 2018-12-27 18:04 | NUR ---
RT AT BEDSIDE DRAWING ABGS AND GIVING BREATHING TREATMENT
--- NOTE | 2018-12-27 18:35 | NUR ---
PT RESTING AT BEDSIDE IN NAD. BREATHING E/U, BILATERAL CHEST RISE. BED AT LOWEST POSITION. CALL LIGHT IN REACH. OFFICERS AT BEDSIDE. LIGHTS DIMMED TO PROMOTE PATIENT COMFORT
[2018-12-27] MEDS ORDERED: GAS RELIEF20 MG/0.3 PO (18:41)
[2018-12-27] MEDS ORDERED: LAXATIVE5 M1 PO (18:42)
[2018-12-27] MEDS ORDERED: CALCIUM CARBON650 MG PO (18:42)
[2018-12-27] MEDS ORDERED: OLANZAPINE10 MG PO (18:42)
[2018-12-27] MEDS ORDERED: FERROUS SULFAT325 M2 (18:43)
[2018-12-27] MEDS ORDERED: CHLORPROMAZINE100 M2 PO (18:43)
[2018-12-27] MEDS ORDERED: HYDROXYZINE50 M1 PO ×2 (18:44→18:45)
[2018-12-27] MEDS ORDERED: TOPROL XL25 MG PO (18:46)
[2018-12-27] MEDS ORDERED: ELOCON0.11 (18:46)
[2018-12-27] MEDS ORDERED: MONTELUKAST SOD10 M1 PO (18:46)
[2018-12-27] MEDS ORDERED: ACID REDUCER 1150 MG PO (18:47)
[2018-12-27] MEDS ORDERED: SERTRALINE100 M1 PO (18:47)
[2018-12-27] MEDS ORDERED: TRAZODONE50 M1 (18:48)
--- NOTE | 2018-12-27 19:07 | NUR ---
REPORT OFF TO SANTANA PETIT
--- NOTE | 2018-12-27 19:16 | NUR ---
REPORT RECIEVED FROM CARMELITA DILLON. PT AWAKE AND ALERT, LAYING IN POSITION OF COMFORT. OFFICERS AT BEDSIDE. AWAITING RM ASSIGNMENT.
--- NOTE | 2018-12-27 19:35 | NUR ---
REPORT GIVEN TO MADELINE DILLON
--- NOTE | 2018-12-27 19:49 | NUR ---
[facility] ACCOMPANIED BY TRANSPORTER AND 2 FEMALE SENIOR LIVING GUARDS. PT A/A/O X 4, ANXIOUS R/T HOSPITAL STAY BUT COOPERATIVE TO CARE AT THIS TIME; WEARS GLASSES (W/ PT). AMBULATORY, NO GAIT OR BALANCE IMPAIRMENT NOTED WHEN WALKING FROM GUERNEY TO BED. ON TELE # 1, HR 125, ST, C/O CONSTANT SHARP C/P FELT ON BILATERAL RIB AREAS AND MID-STERNAL CHEST 2/2 SOB AND COUGHING 8/10, MILDLY RELIEVED BY RESTING AND PAIN MEDICATIONS. LUNGS WHEEZING, SHALLOW-BREATHING, CHEST RISING EVENLY, 2LNC, 96%, PRODUCTIVE COUGH W/ SMALL AMOUNT OF YELLOW SPUTUM W/C PT STATES STARTED A WEEK AGO; SOB UPON EXERTION NOTED. IV SITE RH 20G, CDI. ORIENTED PT TO ROOM, BED CONTROLS, CALL LIGHT SYSTEM. SIDE RAILS UP X 2, BED IN LOW POSITION. BOTH SENIOR LIVING GUARDS BY BEDSIDE. WILL ENDORSE TO SANTANA CORREA.
[2018-12-27 20:05] VITALS: BP 117/70
[2018-12-28 03:15] VITALS: BP 118/76
--- NOTE | 2018-12-28 03:16 | NUR ---
NEW IV KARLEY L WRIST 20 GUAGE AFTER 2 ATTEMPTS,SECURED.FLUSHES EASY.Bassam KNUTSON WILL GIVE PAIN SHOT.
[2018-12-28 05:11] VITALS: BP 118/62
--- NOTE | 2018-12-28 05:15 | NUR ---
PT RESTE DIN INTERVALS DURING SHIFT NO ACUTE CHANGES OCCURRING OVERNIGHT. PT DENIES SOB/CP AT THIS TIME. IV SITE REMAINS PATENT TO LT WRIST, 20G. NO REDNESS, SWELLING OR PAIN NOTED. WILL CONTINUE TO MONITOR.
--- NOTE | 2018-12-28 07:30 | NUR ---
RECEIVED PT. IN BED A/A/O X3. NO SOB, NO N/V NOTED. PT. DENIES ANY PAIN AT THIS TIME. IV SITE NOTED TO L WRIST. CIW OFFICERS X2 AT BEDSIDE. SCD TO BLE MAINTAINED. BED IN LOW POS., CALL LIGHT WITHIN REACH. SIDE RAILS UP X3.
[2018-12-28 09:17] VITALS: BP 99/61
[2018-12-28 12:52] VITALS: BP 116/68
[2018-12-28 13:08] LABS: ALBUMIN 3.6 g/dL (3.4-5.0); ALKALINE PHOSPHATASE 103 U/L (46-116); ALT/SGPT 35 U/L (14-59); AST/SGOT 15 U/L (15-37); BILIRUBIN TOTAL 0.25 mg/dL (0.20-1.00); CALCIUM 10.5 mg/dL (8.5-10.1); CARBON DIOXIDE 23.4 mmol/L (21-32); CHLORIDE SERUM 106 mmol/L (98-107); CREATININE SERUM 0.9 mg/dL (0.6-1.0); GFR1 > 60 mL/min; GLUCOSE SERUM 138 mg/dL (74-106); POTASSIUM SERUM 4.5 mmol/L (3.5-5.1); SODIUM SERUM 142 mmol/L (136-145); TOTAL PROTEIN, SERUM 7.5 g/dL (6.4-8.2)
--- NOTE | 2018-12-28 13:17 | NUR ---
PT. IS BEING SEEN BY DR. BANUELOS AT THIS TIME. DR. BANUELOS WAS MADE AWARE THAT METOPROLOL PO WAS HELD THIS AM DUE TO LOW B/P (99/61). DR. BANUELOS WAS ALSO MADE AWARE THAT PT.'S H.R. HAS BEEN RANGING FROM 106 TO 126 BPM ON HEART MONITOR SINCE LAST NIGHT AND PT. IS ASYMPTOMATIC. ORDER TO GIVE 250 CC NS IV BOLUS X1 RECEIVED.
--- NOTE | 2018-12-28 17:23 | NUR ---
REMAINS IN STABLE CONDITION AT THIS TIME. WILL CONTINUE TO MONITOR.
[2018-12-28 18:05] VITALS: BP 110/72
--- NOTE | 2018-12-28 19:35 | NUR ---
PT RESTING IN BED, NO ACUTE DISTRESS NOTED. PT AOX4, DENIES HANKS/DIZZINESS. TELE #1, ST 120'S. DR. BANUELOS AWARE OF HR, WILL PROVIDE BETA XIN PER ORDER. REPORTS CP BILAT RIB CAGE, INCREASED WITH INSPIRATION. PT ON 2LNC, SHALLOW BREATHING, SLIGHT WHEEZE NOTED. WILL PAGE FOR RT BREATHING TX. PT ON SOLUMEDROL. ABD SOFT, ROUND, OBESE PT. DENIES N/V/D. PT VOIDS FREELY W/O DYSURIA. AMB. SKIN INTACT. IV SITE TO THE LT WRIST PATENT, NO REDNESS, SWELLING OR PAIN NOTED. PT ON ANTIBIOTICS. ALL COMFORT AND SAFETY MEASURES PROVIDED FOR, CALL LIGHT WITHIN REACH, BED IN LOWEST POSITION, WILL CONTINUE TO MONITOR.
[2018-12-28 20:52] VITALS: BP 140/77
--- NOTE | 2018-12-28 23:50 | NUR ---
RECEIVED A CALL FROM LAB, PT POSITIVE FOR MRSA (NARES). ISOLATION BOX IN PLACE, WILL ENDORSE THE EXPLANATION OF INFECTION WELL SIGNING OF PAPERWORK AND INITIATION OF MRSA MEDICATIONS. 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
[2018-12-29 04:59] VITALS: BP 98/57
--- NOTE | 2018-12-29 05:15 | NUR ---
PT RESTED IN INTERVALS DURING SHIFT, NO ACUTE CHANGES OCCURRING OVERNIGHT. PT REMAINS ON 2LNC, TOLERATING BREATHING TX WELL. PT BLOOD SUGAR STABLE LAST NIGHT, ONLY 151, 2 UNITS GIVEN. WILL RECHECK THIS AM. IV SITE REMAINS PATENT, TO LT WRIST, SALINE LOCKED. PT TOLERATING ANTIBIOTICS WELL. ALL COMFORT AND SAFETY MEASURES PROVIDED FOR, CALL LIGHT WITHIN REACH, BED IN LOWEST POSITION, WILL CONTINUE TO MONITOR.
[2018-12-29 06:22] LABS: CALCIUM 9.6 mg/dL (8.5-10.1); CHLORIDE SERUM 105 mmol/L (98-107); CREATININE SERUM 0.9 mg/dL (0.6-1.0); GFR1 > 60 mL/min; GLUCOSE SERUM 187 mg/dL (74-106); SODIUM SERUM 141 mmol/L (136-145)
[2018-12-29 06:26] LABS: BASOPHIL % 0 % (0-2); PLATELET COUNT 427 x10^3mcL (130-400); RED CELL DISTRIBUTION WIDTH 14.9 % (11.5-14.5)
--- NOTE | 2018-12-29 08:00 | NUR ---
ALERT AND ORIENTED. BREATHING FREELY ON RA. LUNG SOUNDS DIMINISHED. RECEIVES RT. DOES NOT APPEAR TO BE IN ANY DISTRESS AT THIS TIME. SL TO RT HAND PATENT. CIW PT. GUARDS X 2 IN ROOM. RT ANKLE SHACKLED TO BED. INDEPENDENT W ADL'S. CALL LIGHT WITH IN REACH.
[2018-12-29 08:13] VITALS: BP 105/65
[2018-12-29 10:03] VITALS: Ht 165.1 cm; Wt 81.6 kg
[2018-12-29 12:50] VITALS: BP 93/59
[2018-12-29 16:35] VITALS: BP 109/71
--- NOTE | 2018-12-29 17:58 | NUR ---
RESTING QUIETLY ON 02 2L NC. ASKS FOR MORPHINE AND NORCO FOR DIAPHRAGM AREA PAIN WITH GOOD EFFECT. GOOD APPETITE. STARTED ON BACTROBAN AND HIBICLENS BATH TODAY. VSS. INDEPENDENT W ADL'S. IF TO LEFT HAND HL'D. CONTINUES ON LEVAQUIN, SOLUMEDROL AND RT PROTOCOL. CALL LIGHT WITHIN REACH.
--- NOTE | 2018-12-29 19:26 | NUR ---
PT RECEIVED A/O X4, ABLE TO MAKE NEEDS KNOWN. TELE #1, DENIES ANY CP/PRESURE. PULSES PALAPBLE, NO EDEMA PRESENT. LUNG SOUNDS DIM ABRAHAM, BREATHING IS EVEN AND UNLABORED ON 2L NC, DENIES SOB, NO RESP DISTRESS NOTED. ABD SOFT AND NONDISTENDED, DENIES N/V. VOIDS FREELY, BRP. AMBULATORY WITH STEADY GAIT. SKIN IS WARM AND DRY, INTACT. PT DENIES HAVING ANY PAIN AT THIS TIME. IV TO LH, PATENT AND INTACT, SITE WNL. NO ACUTE DISTRESS NOTED. GUARDS AT BEDSIDE. BED IN LOWEST SETTING, SIDE RAILS UP X2, CALL LIGHT WITHIN REACH. WILL CONT TO MONITOR.
[2018-12-29 20:56] VITALS: BP 117/83
--- NOTE | 2018-12-29 23:32 | NUR ---
PT C/O 8/10 CHEST DISCOMFORT, PRN MORPHINE IVP GIVEN ORDERED. NO ACUTE DISTRESS NOTED. CALL LIGHT WITHIN REACH. WILL CONT TO MONITOR.
[2018-12-30] VITALS (7 sets, daily range): BP systolic 102–111; BP diastolic 60–74
--- NOTE | 2018-12-30 01:34 | NUR ---
PT C/O DIFFICULTY SLEEPING, PRN AMBIEN GIVEN ORDERED. NO ACUTE DISTRESS NOTED. GUARDS AT BEDSIDE. CALL LIGHT WITHIN REACH. WILL CONT TO MONITOR.
--- NOTE | 2018-12-30 06:14 | NUR ---
PT SLEPT AT INTERVALS THROUGHOUT THE EVENING. BREATHING IS EVEN AND UNLABORED ON 2L NC, NO RESP DISTRESS NOTED. PT C/O 6-12/31 CHEST DISCOMFORT, PRN MORPHINE IVP GIVEN ORDERED. IV TO LH, PATENT AND INTACT, SITE WNL. NO ACUTE CHANGES ENCOUNTERED DURING SHIFT. ALL NEEDS MET AND ANTICIPATED. PT COMPLIANT WITH NURSING CARE. GUARDS AT BEDSIDE. CALL LIGHT WITHIN REACH. WILL ENDORSE CARE TO AM NURSE.
[2018-12-30 07:18] LABS: BASOPHIL % 0.1 % (0-2)
[2018-12-30 07:27] LABS: CALCIUM 9.5 mg/dL (8.5-10.1); CARBON DIOXIDE 27.6 mmol/L (21-32); CHLORIDE SERUM 105 mmol/L (98-107); CREATININE SERUM 0.7 mg/dL (0.6-1.0); GFR1 > 60 mL/min; GLUCOSE SERUM 123 mg/dL (74-106); POTASSIUM SERUM 4.2 mmol/L (3.5-5.1); SODIUM SERUM 141 mmol/L (136-145)
[2018-12-30 07:31] LABS: PLATELET COUNT 426 x10^3mcL (130-400); RED CELL DISTRIBUTION WIDTH 15.1 % (11.5-14.5)
--- NOTE | 2018-12-30 08:10 | NUR ---
PATIENT IS IN BED, BED IS TO THE LOWEST POSITION. PATIENT IS A/O X 4. PATIENT IS ON 2 L NASAL CANNULA. PATIENT IS BREATHING ADEQUATELY AND THERE ARE NO SIGNS OF RESPIRATORY DISTRESS. IV ACCESS IS NOTED TO L HAND. SKIN IS INTACT, NO WOUNDS NOTED. PER NIGHT NURSE PATIENT IS ABLE TO AMBULATE TO THE RESTROOM WITH ASSISTANCE. PATIENTS CALL LIGHT IS WITHIN REACH, HEELS ARE OFF LOADED WITH PILLOWS. WILL CONTINUE TO MONITOR.
--- NOTE | 2018-12-30 09:13 | NUR ---
PATIENT STATED THAT THEY HAVE A 7/10 PAIN IN THEIR ABD AREA. PATIENT MEDICATED, SEE EMAR. WILL REASSESS.
--- NOTE | 2018-12-30 10:13 | NUR ---
PATIENT REASSESSED, AND STATED THAT THEY PAIN HAS LESSENED AT THIS TIME. WILL CONTINUE TO MONITOR.
--- NOTE | 2018-12-30 14:56 | NUR ---
PATIENT COMPLAINING OF PAIN AT THIS TIME. MEDICATION GIVEN, SEE EMAR. WILL REASSESS.
--- NOTE | 2018-12-30 15:03 | NUR ---
PATIENT IN BED AT THIS TIME, STATES TO NOT HAVE ANY PAIN. WILL CONTINUE TO MONITOR.
--- NOTE | 2018-12-30 18:32 | NUR ---
PATIENT IN BED, RESTING COMFORTABLY. PATIENT STATES NO PAIN AT THIS TIME AND IS FREE OF DISTRESS. WILL CONTINUE TO MONITOR.
--- NOTE | 2018-12-30 19:10 | NUR ---
PT RECEIVED A/O X4, ABLE TO MAKE NEEDS KNOWN. TELE #1, DENIES ANY CP/PRESURE. PULSES PALAPBLE, NO EDEMA PRESENT. LUNG SOUNDS DIM ABRAHAM, BREATHING IS EVEN AND UNLABORED ON 2L NC WITH HUM, DENIES SOB, NO RESP DISTRESS NOTED. ABD SOFT AND NONDISTENDED, DENIES N/V. VOIDS FREELY, BRP. AMBULATORY WITH STEADY GAIT. SKIN IS WARM AND DRY, INTACT. PT DENIES HAVING ANY PAIN AT THIS TIME. IV TO LH, PATENT AND INTACT, SITE WNL. NO ACUTE DISTRESS NOTED. GUARDS AT BEDSIDE. BED IN LOWEST SETTING, SIDE RAILS UP X2, CALL LIGHT WITHIN REACH. WILL CONT TO MONITOR.
--- NOTE | 2018-12-30 21:42 | NUR ---
PT C/O 01/31 "RIB PAIN," PRN MORPHINE GIVEN ORDERED. NO ACUTE DISTRESS NOTED. CALL LIGHT WITHIN REACH. WILL CONT TO MONITOR.
--- NOTE | 2018-12-31 00:30 | NUR ---
PT C/O DIFFICULTY SLEEPING, PRN AMBIEN GIVEN ORDERED. NO ACUTE DISTRESS NOTED. CALL LIGHT WITHIN REACH. WILL CONT TO MONITOR.
[2018-12-31 05:04] VITALS: BP 103/62
--- NOTE | 2018-12-31 06:19 | NUR ---
PT SLEPT WELL THROUGHOUT THE EVENING. BREATHING IS EVEN AND UNLABORED, NO RESP DISTRESS NOTED. PT C/O 12/01 "RIB PAIN," PRN NORCO GIVEN ORDERED. NO ACUTE CHANGES ENCOUNTERED DURING SHIFT. ALL NEEDS MET AND ANTICIPATED. IV TO LW, PATENT AND INTACT, SITE WNL. GUARDS AT BEDSIDE. CALL LIGHT WITHIN REACH. WILL ENDORSE CARE TO AM NURSE.
[2018-12-31 06:56] LABS: CALCIUM 9.3 mg/dL (8.5-10.1); CARBON DIOXIDE 27.5 mmol/L (21-32); CHLORIDE SERUM 104 mmol/L (98-107); CREATININE SERUM 0.7 mg/dL (0.6-1.0); GFR1 > 60 mL/min; GLUCOSE SERUM 127 mg/dL (74-106); POTASSIUM SERUM 4.3 mmol/L (3.5-5.1); SODIUM SERUM 141 mmol/L (136-145)
--- NOTE | 2018-12-31 07:13 | NUR ---
PT IN NO ACUTE DISTRESS. CONTINUITY OF CARE ENDORSED TO JOSEFINA DILLON. ALL QUESTIONS AND CONCERNS ADDRESSED.
[2018-12-31 07:27] LABS: PLATELET COUNT 421 x10^3mcL (130-400)
--- NOTE | 2018-12-31 08:00 | NUR ---
RECEIVED PATIENT REQUESTING PAIN MEDICATION. SHE HAS PAIN AT TIME TO THE CHEST AND HAS BEEN WITH WHEEZING AND RALES NOTED TO THE LUNGS BILATERALY. WITH HISTOYR OF ASTHMA AND HAS BEEN HERE AT [facility] ON SEVERAL OCCASIONS DUE TO HER ASTHMA. GUARDS AT BEDSIDE AND SECURITY HAS BEEN MAINTAINED. PATIEN TIS GROSSLY OBESE AND WITH EDEMA TO THE LOWER EXTREMITIES NOTED. PATIENT HAS BEEN WITHOUT A FEVER AND CONTINUED ON SOLUMEDROL, GLUCOSE CHECKS AND BLOOD SUGAR AT 127 A 530AM. VITALS ARE STABLE AT 97.3, 84, 18, 103/62, 96% ON ROOM AIR. SEEN BY DR PENA THIS AM AND HAS BEEN OOB AND TOELRATED WELL. WILL CONTINUE TO MONITOR INDICATED. TOLERATED DIET AND FLUIDS WELL.
[2018-12-31 09:27] VITALS: BP 97/58
[2018-12-31 10:15] VITALS: BP 103/62
[2018-12-31 11:47] LABS: BAND NEUTROPHIL 3 % (0-10); BASOPHIL 0 % (0-2); MONOCYTE 3 % (0-7); SEGMENTED NEUTROPHILS 88 % (37-75)
[2018-12-31 11:49] LABS: PLATELET MORPHOLOGY PLATELETS INCREASED
[2018-12-31 12:45] VITALS: BP 111/65
--- NOTE | 2018-12-31 12:46 | NUR ---
GAVE NORCO FOR PAIN EARLIER AND EFFECTIVE AT THIS TME GAVE DISCHARGE PACKET TO THE GUARDS AND THE IV AND TELE REMOVED INDICATED.
--- NOTE | 2018-12-31 13:39 | NUR ---
GAVE PACKET TO THE GUARD INDICATED AND AWAITING DELICIA CAR FOR MARKET RESEARCH INTERN. THE PATIEN NICKOLAS GOOD RELIEF FRM PAIN WITH THE NORCO GIVEN.
--- NOTE | 2018-12-31 15:30 | NUR ---
PATIENT DISCHARGED BACK TO [facility] WITH ALL BLONGINGS AND IN NO ACUTE RESPIRATORY DISTRESS AT THIS TIME.
== END 2018-12-31 14:57 | disposition other institution (70) | DRG 189 ==
LOC: ED 16:28 → DU 18:42 → EDBEDREQ 18:42 → DU 19:49
PROVIDERS: Emergency Medicine; ADMIT Internal Medicine
DX: J96.01 Acute respiratory failure with hypoxia (principal); J44.1 Chronic obstructive pulmonary disease with (acute) exacerbation; J45.901 Unspecified asthma with (acute) exacerbation; J44.0 Chronic obstructive pulmonary disease with (acute) lower respiratory infection; I50.9 Heart failure, unspecified; I11.0 Hypertensive heart disease with heart failure; J20.9 Acute bronchitis, unspecified; I48.91 Unspecified atrial fibrillation; F41.9 Anxiety disorder, unspecified; R73.9 Hyperglycemia, unspecified; D72.829 Elevated white blood cell count, unspecified; E87.6 Hypokalemia; G47.33 Obstructive sleep apnea (adult) (pediatric); Z68.29 Body mass index [BMI] 29.0-29.9, adult; Z88.8 Allergy status to other drugs, medicaments and biological substances; Z91.041 Radiographic dye allergy status; Z88.6 Allergy status to analgesic agent; Z79.899 Other long term (current) drug therapy
CPT/HCPCS: 36600; 82962; 83880; 85378; 94150; G0378; J1644; J1815; J1956; J2270; J2920; J2930; J3010; J3475; J7030; J7613; J7620; J7626; Q0092; Q0161

== ENCOUNTER 2019-01-15 15:49 | Inpatient (IN) | payer OTHER ==
[~2019-01-15] VITALS: Ht 149.9 cm; Wt 127.0 kg
[~2019-01-15 15:49] MED LIST changes: +ACID REDUCER 1150 MG PO; +CALCIUM CARBON650 MG PO; +CHLORPROMAZINE100 M2 PO; +ELOCON0.11; +FERROUS SULFAT325 M2; +GAS RELIEF20 MG/0.3 PO; +HYDROXYZINE50 M1 PO; +LAXATIVE5 M1 PO; +OLANZAPINE10 MG PO; +SERTRALINE100 M1 PO; +TRAZODONE50 M1
--- NOTE | 2019-01-15 15:58 | NUR ---
PT BROUGHT IN BY [facility] WITH C/O SOB SINCE TODAY AT 1300 PT, PT COMES FROM [facility]. CORRECTION GAUR AT BEDSIDE. PT REPORTS NON-PRODUCTIVE COUGH. AT BEDSIDE PT IS AAOX4. RESPS LABORED. PT PLACE ON BIPAP PRIOR TO ARRIVAL. PT PLACED ON FULL REVENUE INVESTIGATOR BED RAIL UP X1 FOR SAFETY. PT ORIENTED TO ROOM, USE OF CALL SOLARES, AND BED IN LOWEST POSITION. PT CALM AND COOPERATIVE. NO C/O OF N/V/D OR FEVER. PT SPEAKING IN FULL SENTENCES. MSE COMPLETED BY DR. CRAIG
[2019-01-15 16:21] LABS: BASOPHIL % 0.5 % (0-2); PLATELET COUNT 371 x10^3mcL (130-400); RED CELL DISTRIBUTION WIDTH 15.1 % (11.5-14.5)
[2019-01-15 16:28] LABS: CALCIUM 9.3 mg/dL (8.5-10.1); CHLORIDE SERUM 105 mmol/L (98-107); CREATININE SERUM 0.9 mg/dL (0.6-1.0); GFR1 > 60 mL/min; GLUCOSE SERUM 104 mg/dL (74-106); POTASSIUM SERUM 3.6 mmol/L (3.5-5.1); SODIUM SERUM 139 mmol/L (136-145)
[2019-01-15 16:33] LABS: ALBUMIN 3.6 g/dL (3.4-5.0); ALKALINE PHOSPHATASE 118 U/L (46-116); ALT/SGPT 47 U/L (14-59); AST/SGOT 18 U/L (15-37); BILIRUBIN TOTAL 0.66 mg/dL (0.20-1.00); TOTAL PROTEIN, SERUM 7.5 g/dL (6.4-8.2)
--- NOTE | 2019-01-15 16:49 | NUR ---
PT C/O PAIN, DR. CRAIG MADE AWARE, HE WILL GO AND TALK TO PT.
--- NOTE | 2019-01-15 17:54 | NUR ---
PT RESTING IN POSITION OF COMFORT. NO CHANGE IN STATUS WILL CONTINUE TO MONITOR.
[2019-01-15] MEDS ORDERED: PROVERA10 MG PO (17:58)
[2019-01-15] MEDS ORDERED: LAMOTRIGINE25 MG PO (17:59)
[2019-01-15] MEDS ORDERED: TYLENOL ARTHRI650 MG PO (18:01)
[2019-01-15] MEDS ORDERED: GOOD NEIGHBOR P20 M2 PO (18:02)
--- NOTE | 2019-01-15 18:03 | NUR ---
PT AMBULATED FROM BED TO RESTROOM AND BACK WITH MOBIL 02. NO DISTRESS NOTED, RESPS E/U, SKIN IS PINK, WARM AND DRY.
[2019-01-15] MEDS ORDERED: DOCUSATE-SENNA PO (18:05)
[2019-01-15] MEDS ORDERED: SINGULAIR10 MG PO (18:06)
[2019-01-15] MEDS ORDERED: METOPROLOL TART25 M1 PO (18:06)
[2019-01-15] MEDS ORDERED: DUONEB INH (18:09)
[2019-01-15] MEDS ORDERED: MOT600 PO (18:10)
[2019-01-15] MEDS ORDERED: MYLIIL PO (18:11)
--- NOTE | 2019-01-15 18:11 | NUR ---
PER DR. CRAIG REMOVE PT OFF BI-PAP. PT TOLERATED 2L NC O2 WELL. SP02 AT 97%. WILL CONTINUE TO MONITOR.
[2019-01-15] MEDS ORDERED: TRAZODONE50 M1 PO (18:14)
[2019-01-15] MEDS ORDERED: ASMANEX TW0.22 MG/A1 INH (18:18)
[2019-01-15] MEDS ORDERED: XOPENEX HF0.045 MG/1 INH (18:20)
--- NOTE | 2019-01-15 18:21 | NUR ---
MED REC COMPLETED USING MED REC SENT FROM [facility].
--- NOTE | 2019-01-15 19:13 | NUR ---
HAND-OFF REPORT TO SANTANA NEWELL TO ASSUME CARE FOR PT.
--- NOTE | 2019-01-15 19:15 | NUR ---
RECEIVED REPORT FROM WESLEY DILLON AND ASSUMED CARE OF PATIENT. PT. LAYING ON GURNEY IN POSITION OF COMFORT. BREATHING E/U. REPORTS SHE IS FEELING BETTER. NOT IN ANY APPARENT DISTRESS AT THIS TIME. GUARDS AT BEDSIDE. WILL CONTINUE TO MONITOR.
--- NOTE | 2019-01-15 19:54 | NUR ---
REPORT CALLED TO DANGELO DILLON FOR FURTHR CARE OF PATIENT. ALL QUESTIONS AND CONCERNS ADDRESSED.
--- NOTE | 2019-01-15 20:00 | NUR ---
PT. REPORTS PAIN 8/10 WHEN TAKING A DEEP BREATH. FLAVIA ORDERED PRN AND GIVEN TO PATIENT PRIOR TO BEING TRANSFERED TO TELE.
--- NOTE | 2019-01-15 20:05 | NUR ---
PT. TRANSFERED TO [facility] FOR FURTHER EVAL AND CARE. PT. AAOX4, TALKING AND RESPONDING APPROPRIATELY, BREATHING E/U. NOT IN ANY APPARENT DISTRESS AT THIS TIME. TRANSFERED BY MARISABEL DILLON. PT. STABLE AT TIME OF TRANSFER.
--- NOTE | 2019-01-15 20:20 | NUR ---
[facility] ACCOMPANIED BY TRANSPORTER AND 2 MALE NURSING HOME GUARDS. PT A/A/O X 4, ANXIOUS R/T HOSPITAL STAY BUT COOPERATIVE TO CARE AT THIS TIME; WEARS GLASSES (W/ PT). AMBULATORY, NO GAIT OR BALANCE IMPAIRMENT NOTED WHEN WALKING FROM GUERNEY TO BED. ON TELE # 5, HR 120, ST, C/O CONSTANT SHARP C/P FELT ON BILATERAL RIB AREAS AND MID-STERNAL CHEST 2/2 SOB AND PRODUCTIVE COUGHING (LIGHT GREEN) /10, MILDLY RELIEVED BY RESTING AND PAIN MEDICATIONS. LUNGS WHEEZING, SHALLOW-BREATHING, CHEST RISING EVENLY, 2LNC, 95%; SOB UPON EXERTION NOTED. IV SITE RH 20G, CDI. ORIENTED PT TO ROOM, BED CONTROLS, CALL LIGHT SYSTEM. SIDE RAILS UP X 2, BED IN LOW POSITION. BOTH NURSING HOME GUARDS BY BEDSIDE. WILL ENDORSE TO SANTANA PIERSON.
[2019-01-15 20:42] VITALS: BP 104/65
[2019-01-15 21:15] VITALS: BP 104/65
--- NOTE | 2019-01-15 22:27 | NUR ---
PT C/O BURNING PAIN TO ABRAHAM RIB AREA 01/31, MEDICATED WITH NORCO.
--- NOTE | 2019-01-16 01:05 | NUR ---
TRAZODONE GIVEN FOR INSOMNIA.
--- NOTE | 2019-01-16 03:10 | NUR ---
PT RESTING IN BED WITH EYES CLOSED. BREATHING EVEN AND UNLABORED. NO DISTRESS NOTED. CALL LIGHT WITHIN REACH. CIM GUARDS X2 AT BEDSIDE.
--- NOTE | 2019-01-16 03:54 | NUR ---
MORPHINE GIVEN FOR BURNING PAIN TO RIB CAGE AREA 12/31.
[2019-01-16 05:12] VITALS: BP 102/68
--- NOTE | 2019-01-16 07:00 | NUR ---
PT RESTING WITH EYES CLOSED AT THIS TIME. NO SOB ON 02 2L VIA NC. BREATHING EVEN AND UNLABORED. NO DISTRESS NOTED. SAFETY MEASURES MAINTAINED. ALL NEEDS ATTENDED TO. CALL LIGHT WITHIN REACH. CIM GUARDS X2 AT BEDSIDE. WILL ENDORSE CARE TO DAY SHIFT RN.
--- NOTE | 2019-01-16 07:46 | NUR ---
RECIEVED HAND OFF REPORT FROM NIGHT NURSE. FOUND PATIENT SITTING UP IN BED WITH BREATHING TREATMENT IN PROGRESS. PATIENT HAD NO COMPLAINTS AT THIS TIME. CALL LIGHT WITHIN REACH, TWO CORRECTIONAL OFFICERS IN ROOM WITH PATIENT. WILL CONTIUE TO MONITOR
[2019-01-16 09:01] VITALS: BP 103/64
--- NOTE | 2019-01-16 10:22 | NUR ---
PATIENT COMPLAINING OF ANXIETY AND FEELING RESTLESS. VISUALIZED PATIENT SHAKING LEGS BACK AND FORTH, HR 108, REPS 20. ADMINISTERED ATIVAN PER PRN ORDER. WILL REASSESS. CALL LIGHT WITHIN REACH, OFFICERS IN ROOM
--- NOTE | 2019-01-16 11:22 | NUR ---
PATIENT REQUESTING PAIN MEDICATION FOR PAIN IN RIBS WHEN BREATHING DEEPLY, 01/31. EDUCATED PATIENT ON EXCESSIVE USE OF INTERCOSTAL MUSCLES AND PAIN ASSOCIATED WITH DEEP BREATHING. ADMINISTERED NORCO PO FOR APIN. PATIENT REQUESTNG BREATHING TREATMENT. CALLED SAVANA MUÑIZ TO GIVE BREATHING TREATMENT
[2019-01-16 12:31] VITALS: BP 120/60
--- NOTE | 2019-01-16 12:47 | NUR ---
ADMINISTERED MEDICATION PER MAR. PATIENT REQUESTING HER MORPHINE ON SCHEDULE STATING HER PAIN IS STILL PRESENT IN THE SIDES OF HER CHEST WHEN SHE BREATHES DEEPLY. EDUCATED PATIENT THAT MORPHINE CAN DEPRESS RESPIRATORY DRIVE AND SPECIAL CARE IS NEEDED WHEN TAKING MORPHINE. PATIENT STATED SHE THINKS SHE CAN MAKE IT 6 HOURS BEFORE NEEDING PAIN MEDICATION AGAIN. CALL LIGHT WITHIN REACH, WILL REASSESS
--- NOTE | 2019-01-16 14:02 | NUR ---
ADMINISTERED MORPHINE, PATIENT REQUESTING DUE TO 9/10 PAIN REPORTED TO LOWER RIBS WHEN DEEP BREATHING. CALL LIGHT WITHIN REACH, OFFICERS IN ROOM, WILL REASSESS
[2019-01-16 16:11] VITALS: BP 102/60
--- NOTE | 2019-01-16 18:41 | NUR ---
PATIENT CONTINUALLY ASKING FOR PAIN MEDICATION. VSS. REWDUCATED PATIENT ON SIDE EFFECTS OF MEDICATIONS. MEDICATED PER MAR. WILL ENDORSE TO NIGHT NURSE
--- NOTE | 2019-01-16 20:07 | NUR ---
RECEIVED REPORT FROM AM NURSE. PT IN BED WATCHING TV. PT AAAOX4. ABLE TO MAKE NEEDS KNOWN. ON TELE#5 ST, DENIES CP/PRESSURE AT THIS TIME. PALPABLE PULSES ALL THROGHOUT. NO EDEMA NOTED. EXPIRATORY WHEEZE ON 2L NC. O2 SAT 95%. BREATHING EVEN AND UNLABORED. NO SOB NOTED. NO S/S OF RESP DISTRESS NOTED. ABD SOFT AND NONDISTENDED. AC TIVE BOWEL SOUND X4 QUAD. DENIES N/V/D. LAST BM 01/15/19. VOIDS FREELY BRP. AMBULATORY. IV SL TO LAC FLUSHING WELL. SITE FREE FROM REDNESS AND SWELLING. BED AT LOWEST SETTING. SIDE RAILS X2 UP. CALL LIGHT WITHING REACH. WILL CONTINUE TO MONITOR.
--- NOTE | 2019-01-16 21:40 | NUR ---
AT 2118-PATIENT COMPLAINED OF ALLERGIC REACTION FROM MEDS GIVEN BY ASSIGNED NURSE MICHELLE- REDNESS TO CHEST AND ARM NOTED AND STATED HAVING DIFF BREATHING, SAT 89% ON 2LNC INCREASED O2 FLOW TO 4LNC, SAT 92%. MADE CALL TO DR BANUELOS AND REPORTED ABOVE, WITH ORDER RECEIVED,CALLED PHARMACY IMMEDIATELY ABOUT ORDER.
[2019-01-16 21:42] VITALS: BP 100/56
--- NOTE | 2019-01-16 21:45 | NUR ---
AT 2120-BENADRYL 50 MG IVP GIVEN, AND 2121 SOLUMEDROL 125MG IVP GIVEN. SOON MED GIVEN PATIENT FELT RELIEF AND STATED FEELING BETTER. OA T 4LNC NOW AT 96-99%. WILL CONTINUE TO MONITOR.
--- NOTE | 2019-01-17 01:00 | NUR ---
PT C/O 03/03 PAIN ON HER RIBS WHEN BREATHING. PT MEDICATED WITH PRN MORPHINE PER AUG AT 0014. PT IN BED WITH EYES CLOSED. BREATHING EVEN AND UNLBORED. PT REMAINS ON 4L NC. NO ACUTE DISTRESS NOTED. BED AT LOWEST SETTING. SIDE RAILS X2 UP. CALL LIGHT WITHING REACH. WILL CONTINUE TO MONITOR.
--- NOTE | 2019-01-17 03:26 | NUR ---
PT C/O 01/31 PAIN AT HER RIBS WHEN BREATHING. MEDICATED WITH NORCO PRN PER AUG. WILL CONTINUE TO MONITOR.
[2019-01-17 06:41] VITALS: BP 104/73
--- NOTE | 2019-01-17 06:43 | NUR ---
PT SLEPT WELL THROGHOUT THE NIGHT. BREATHING EVEN AND UNLABORED. PT PUT BACK ON 2L NC. TOLERATING WELL. O2 SAT AT 94%. PT C/O 7/10 PAIN UPON DEEP INSPIRATION. WILL MEDICATE ACCORDINGLY. NO ACUTE DISTRESS NOTED. ALL NEEDS ASSESSED AND ATTENDED TO. IV SL TO LAC FLUSHING WELL. SITE FREE FROM REDNESS AND SWELLING. BED AT LOWEST SETTING. SIDE RAILS X2 UP. CALL LIGHT WITHING REACH. WILL ENDORSE CARE TO AM NURSE.
[2019-01-17 06:57] LABS: PLATELET COUNT 339 x10^3mcL (130-400)
--- NOTE | 2019-01-17 07:32 | NUR ---
RECEIVED HAND OFF REPORT FROM NIGHT NURSE. PATIENT FOUND SITTING UP, IMMEDIATLY ASKED ABOUT HER MORPHINE. INFOMRED PATIENT I WILL RETURN AFTER GETTING REPORT FOR OTHER PATIENTS. NO VISUABLE DISTRESS AT THIS TIME. SYMPTOMS RESOVED AFTER EPISODE OF ALERGIC REACTION LAST NIGHT. NC IN PLACE AT 2L, TOLERATING WELL. BIPAP IN ROOM BUT NOT SET UP. PATIENT STATED IT WAS NOT USED LAST NIGHT. CALL LIGHT WITHIN REACH, BEHAVIORAL PSYCHOLOGIST (CO) IN ROOM
[2019-01-17 07:37] LABS: BASOPHIL % 0 % (0-2)
[2019-01-17 07:40] LABS: CALCIUM 9.4 mg/dL (8.5-10.1); CARBON DIOXIDE 27.1 mmol/L (21-32); CHLORIDE SERUM 106 mmol/L (98-107); CREATININE SERUM 0.8 mg/dL (0.6-1.0); GFR1 > 60 mL/min; GLUCOSE SERUM 135 mg/dL (74-106); POTASSIUM SERUM 4.2 mmol/L (3.5-5.1); SODIUM SERUM 142 mmol/L (136-145)
[2019-01-17 08:20] VITALS: BP 107/77
--- NOTE | 2019-01-17 08:49 | NUR ---
ADMINSITRED MEDICATION PER MAR. PATIENT REQUESTING BREATHING TREATMENT. RT WITH PATIENT AT THIS TIME. WILL RETURN TO MONITOR PATIENT
--- NOTE | 2019-01-17 12:29 | NUR ---
ADMINISTERED MEDICATIONS PER AUG. PATIENT COMPLAINING OF SHORTNESS OF BREATH. RT CALLED AND PRN BREATHING TREATMENT GIVEN. LUNCH TRAY AT BEDSIDE. CALL LIGHT WIHTIN REACH, WILL CONTINUE TO TR
[2019-01-17 12:49] VITALS: BP 116/66
--- NOTE | 2019-01-17 13:27 | NUR ---
PATIENT COMPLAINING OF PAIN TO LOWER RIBS WHEN BREATHING. REFUSED ALTERNATIVE THERAPIES OR ICE AND RELAXATION. PATIENT NOTED ADMINISTRATION TIME IN HER BOOKLET OF MEDICATIONS. WILL REASSESS. CALL LIGHT WITHIN REACH
--- NOTE | 2019-01-17 15:51 | NUR ---
PATIENT COMPLAINING OF 10/10 PAIN TO LOWER RIBS WHEN BREATHING DEEPLY. REQUESTING PAIN MEDICATION. RESISTENT TO ALTERNATIVE THERAPIES. RT GAVE BREATHING TREATMENT RECENTLY. PATIENT MEDICATION PER AUG. WILL RE ASSESS.
--- NOTE | 2019-01-17 16:35 | NUR ---
PATIENT MRSA SCREEN CAME BACK WITHOUT MRSA ISOLATED. PATIENT IS NO LONGER ON CONTACT PRECAUTIONS. SENT MOX TO ERIKA PEARSON INECTIOUS CONTROL NURSE. WILL COMUNICATE THIS WITH NIGHT NURSE
[2019-01-17 16:57] VITALS: BP 104/62
--- NOTE | 2019-01-17 17:41 | NUR ---
PATIENT EMDICATED ER MAR. PATIENT ASKED WHEN HER NORCO IS DUE BECAUSE HER PAIN HAS RETURNED. PATIENT RESISTANT TO ALTERNATIVE PAIN MANAGEMENT THERAPIES. PAIN MEDICATION IS NOT DUE. INSTRUCTED PATIENT THAT WE DO NOT ADMINISTER PAIN MEDICATION ON A SCHEDULE. CALL LIGHT IS WITHIN REACH, WILL CONTINUE TO MONITOR
--- NOTE | 2019-01-17 18:17 | NUR ---
PATIENT CALLED NURSES STATION REQUESTING NORCO. WHEN ASSESSED PATIENT STATED SHE HAS 8/10 PAIN IN RIBS WHEN TAKING DEEP BREATHS. PATIENT REPORTED THAT SHE HAS BEEN USING THE INCENTIVE SPIROMETER "3 TIMES EVERY 30 MINUTES." PATIENT REISTANT TO TRY ALERANTIVE THERAPIES, STATING THAT THEY "DO NOT WORK" PATIENT MEDICATED PER MAR WITH NORCO PRN FOR PAIN. WILL ENDORSE REASSESSMENT OF PAIN TO NIGHT NURSE.
--- NOTE | 2019-01-17 19:40 | NUR ---
RECEIVED REPORT FROM AM NURSE. PT [id number], ABLE TO MAKE NEEDS KNOWN. ON TELE# ST. DENIES CP/PRESSURE AT THIS TIME. PALPABLE PULSES TO BLE AND BUE. NO EDEMA NOTED. WHEEZE TO BLL. C/P SOB ON EXERTION. BREATHING EVEN AND UNLABORED ON 2L NC. C/O PAIN 7/10 ON RIBS WHEN BREATHING. WILL MEDICATE ACCORDINGLY. ABD SOFT AND NONDISTENDED. ACITIVE BOWEL SOUNDS X4 QUAD. DENIES N/V/D. VOIDS FREELY BRP. AMBULATORY. IV SL TO LAC FLUSHING WELL. SITE FREE FROM REDNESS AND SWELLING. BED AT LOWEST SETTING. SIDE RAILS X2 UP. CALL LIGHT WITHING REACH. WILL CONTINUE TO MONITOR.
--- NOTE | 2019-01-17 20:30 | NUR ---
CALL DR BANUELOS REGARDING PT MED THORAZINE. SHE HAD AN ALLERGIC REACTION LAST NIGHT TO ONE OF THE MEDS. PT STATED SHE NEVER TAKEN THORAZINE MED BEFORE. PER DR BANUELOS, WE WILL HOLD MED FOR NOW.
[2019-01-17 21:11] VITALS: BP 112/74
--- NOTE | 2019-01-17 21:54 | NUR ---
PT C/O 8/10 PAIN AT HER RIBS WHEN BREATHING. ENCOURAGE TO TRY ALTERATIVE THERAPY. NORCO PO. SHE REFUSED TO TRY ANY OTHER TREATMENTS. AND STATES NOTHING HELPS. SHE WANTS MORPHINE IV. PT MEDICATED WITH MORPHINE PRN PER AUG. WILL CONTINUE TO MONITOR.
--- NOTE | 2019-01-17 23:31 | NUR ---
PT C/O 01/31 PAIN AT HER RIBS UPON BREATHING. SHE REQUESTING NORCO. EDUCATED PT ABOUT PRN MEDICATIONS THAT THEY ARE ONLY TO BE GIVEN NEEDED. SHE STATED "I KNOW, BUT I AM IN A LOT OF PAIN AND NOTHING HELPS". PT MEDICATED WITH PRN NORCO PER AUG. ENCOURAGED PT TO USE BIPAP. PT REFUSED, STATES SHE DOESNT NEED IT BECAUSE SHE IS NOT SLEEPING A LOT. REMAINS ON 2L NC. BREATHING EVEN AND UNLABORED. NO ACUTE DISTRESS NOTED. WILL CONTINUE TO MONITOR.
--- NOTE | 2019-01-18 01:59 | NUR ---
PT WAS PUT ON BIPAP BY RT. TOLERATING IT WELL. BREATHIMG EVEN AND UNLABORED. NO ACUTE DISTRES NOTED. BED AT LOWEST SETTING. SIDE RAILS X2 UP. CALL LIGHT WITHING REACH. WILL CONTINUE TO MONITOR.
--- NOTE | 2019-01-18 04:31 | NUR ---
PT C/O 03/03 PAIN ON HER RIBS UPON BREATHING. REQUESTING IV MORPHINE. ENCOURAGE TO TRY OTHER ALTERNATIVE THERAPIES TO HELP HER BREATH BETTER AND TO TRY PO MEDS OVER IV. SHE REFUSED TO TRY ANYTHING ELSE. STATED NOTHING HELPS. PT MEDIATED WITH IV PRN MORPHINE PER AUG. PT REMAIN ON BIPAP. TOLERATING WELL. BREATHING EVEN AND UNLABORED. NO ACUTE DISTRESS NOTED. WILL CONTINUE TO MONITOR.
[2019-01-18 04:53] VITALS: BP 124/78
--- NOTE | 2019-01-18 05:30 | NUR ---
PT SLEPT AT [facility], [place], OPERATED BY [facility] THE NIGHT. BREATHING EVEN AND UNLABORED. REMAINS ON BIPAP. TELERATING WELL. O2 SAT AT 97%. IV SL TO LAC FLUSHING WELL. SITE FREE FROM REDNESS AND SWELLING. NO ACUTE DISTRESS NOTED. ALL NEEDS ASSESSED AND ATTENDED TO. BED AT LOWEST SETTING. SIDE RAILS X2 UP. CALL LIGHT WITHING REACH. WILL ENDORSE CARE TO AM NURSE.
--- NOTE | 2019-01-18 07:46 | NUR ---
RECEIVED HAND OFF REPORT FROM NIGHT NURSE. NO NEW CHANGES. PATIENT LAYING ON LEFT SIDE IN BED WITH BIPAP ON. PATIENT AROUSED WHEN ENTERED ROOM. NO COMPLAINTS A THIS TIME. CALL ILT IS WITHIN REACH WILL CONTINUE TO MONITOR. CORRECTIONAL OFFICERS IN ROOM WITH PATIENT.
--- NOTE | 2019-01-18 08:08 | NUR ---
PATIENT CALLED COMPLAINING OF ANXIETY, STOMACH FELLING"TWISTED" AND BREATHING "TIGHT" RT CALLED AND ON WAY TO GIVE BREATHING TREATMENT, RE WILL ASSESS AFTER TREATMENT.
[2019-01-18 08:17] VITALS: BP 105/68
[2019-01-18 10:27] VITALS: BP 124/78
--- NOTE | 2019-01-18 11:13 | NUR ---
PATIENT RESTING AT THIS TIME. APPARENTLY ASLEEP. BIBAP IN PLACE. NO APPARENT DISTRESS NOTED. WILL CONTIUE TO MONITOR
--- NOTE | 2019-01-18 11:52 | NUR ---
PATIENT CALLED STATION ASKING FRO BREATHING TREATMENT. RT AT BEDSIDE NOW ADMINSITEREING BREATHING TREATMENT. PATIENT COMPLAINING OF PAIN TO RIBS, WILL REASSESS AFTER BREATH TX. AND MEDICTED NEEDED.
--- NOTE | 2019-01-18 12:17 | NUR ---
MEDICATIONS ADMINISTERED PER MAR. PATIENT VS CHECKLED BEFORE ADMINSITRATION. WILL REASSESS PAIN LEVEL
[2019-01-18 14:37] VITALS: BP 112/72
[2019-01-18 16:41] VITALS: BP 116/76
--- NOTE | 2019-01-18 17:10 | NUR ---
PATIENT COMPLAINING OF PAIN TO LOWER RIBS WHEN BREATHING DEEPLY, 12/31 MEDICATED PER AUG. ADMINISTERED SCHEUDLED MEDICATION PER AUG. WILL REASSESS PAIN
--- NOTE | 2019-01-18 18:05 | NUR ---
PATIENT COMPLAINING OF ALLERGIC REACTION, ITCHINESS AND SOB. PINPOINT REDNESS SEEN ON INNER FOREARM. PATIENT STATES THAT IS THE CONCENTRATION OF HER ITCHINESS. VS STABLE, BP 112/49, HR 112, SPO2 96% TEMP 98.7. CALLED DR BANUELOS AND RECEIVED ORDER FOR BENADRYL ONE TIME. ADMINISTERED PO BENADRYL. WILL MONITOR, CALL LIGHT WITHIN REACH
--- NOTE | 2019-01-18 19:40 | NUR ---
RECEIVED REPORT FROM AM NURSE. PT LAYING DOWN IN BED WATCHING TV. PT AAOX4, [id number] [place]. ABLE TO MAKE NEEDS KNOWN. ON TELE#5 ST. DENIES CP/PRESSURE AT THIS TIME. PALPABLE PULSES TO BLE AND BUE. NO EDEMA NOTED. LUNG SOUNDS DIMISHED TO ABRAHAM BASES. BREATHING EVEN AND UNLABORED ON 2L NC. NO RESP DISTRES NOTED. ABD SOFT AND NONDISTENDED. ACTIVE BOWEL SOUNDS X4 QUAD. DENIES ANY N/V/D. LAST BM 12/19/18. VOIDS FREELY BRP. AMBULATORY. IV SL TO LAC FLUSHING WELL. SITE FREE FROM REDNESS AND SWELLING. C/O ANXIETY. MEDICATED WITH ATIVAN PRN PER AUG. BED AT LOWEST SETTING. SIDE RAILS X2 UP. CALL LIGHT WITHING REACH. WILL CONTINUE TO MONITOR.
[2019-01-18 20:40] VITALS: BP 147/92
--- NOTE | 2019-01-18 22:00 | NUR ---
PT C/O 12/31 PAIN AT HER RIBS UPON BREATHING. PT MEDICATED WITH PRN NORCO PER AUG. WILL CONTINUE TO MONITOR.
--- NOTE | 2019-01-19 00:56 | NUR ---
PT AWAKE LAYING DOWN IN BED. BREATHING EVEN AND UNLABORED ON 2L NC. REQUESTING MILK AND CRACKERS. MILK AND CRACKERS PROVIDED. ENCOURAGED PT TO USE BIPAP. SHE STATES SHE WILL PUT IT ON LATER. SHE WILL CALL WHEN SHE WANTS TO PUT IT ON. BED AT LOWEST SETTING. SIDE RAILS X2 UP. CALL LIGHT WITHING REACH. WILL CONTINUE TO MONITOR.
--- NOTE | 2019-01-19 04:33 | NUR ---
PT REFUSED TO PUT THE BIPAP ON. STATES SHE DOESNT WANT IT BECAUSE SHE IS NOT SLEEPING MUCH. SHE WILL CALL IF SHE WANTS IT ON. BREATHING EVEN AND UNLBAORED ON 2L NC. NO ACUTE DISTRESS NOTED. BED AT LOWEST SETTING. SIDE RAILS X2 UP. CALL LIGHT WITHING REACH. WILL CONTINUE TO MONITOR.
[2019-01-19 05:55] VITALS: BP 108/79
--- NOTE | 2019-01-19 06:53 | NUR ---
PT SLEPT WELL THROUGHOUT THE NIGHT. BREATHING EVEN AND UNLABORED ON 2L NC. NO RESP DISTRESS NOTED. PT REFUSED TO USE BIPAP ALL NIGHT. ALL NEEDS ASSESSED AND ATTENDED TO. C/O 12/31 PAIN AT HER RIBS WHEN BREATHING. MEDICATED WITH NORCO PRN PER AUG. BED AT LOWEST SETTING. SIDE RAILS X2 UP. CALL LIGHT WITHING REACH. WILL ENDORSE CARE TO AM NURSE.
--- NOTE | 2019-01-19 08:00 | NUR ---
RECEIVED PATIENT AWAKE AND FAMILURE TO THIS STAFF WITH RECENT PREVIOUS ADMISSION FOR SOB. PATIENT HAS HISTORY OF CHRONIC ASTHMA, COPD AND WITH HTN, SLEEP APNEA AND REATIVE AIRWAY DISEASE. PATEINT HAS BEEN WITH RALES THIS AM AND SHE HAS A TENDANCY TO HOLD HER BREATH AD THE SATURATIONS ARE LOWER AT 92% PATIENT HAS HAD VITALS THIS AM AT 97.2, 85, 18, 108/79, 96% AT 500AM. THE PATIENT CONTINUED ON BREATHING TREATMENTS OF XOPENEX AND PULMICORT ORDERED. SHE IS REQUESTING ATIVAN THIS AM, SHE IS GROSSLY OBESE WITH EDEMA NOTED TO THE LOWER EXTREMTIES ADN IS WITH BLOATED APPEARANCE OVERALL. SHE HAS ACTIVE BOWEL SOUNDS AND THE ABDOMEN IS DISTENDED BUT SOFT. PATIENT HAS BEEN ON 02 BUT REFUSED THE BI PAP LAST NIGHT. HER HEARTRATE IS RUNNING SINUS TO SINUS TACH, THE PATIENT IS FOR POSSIBLE DISCHARGE TO THE [facility] TODAY. SHE IS WITH SOB ON EXERTION AND NARANJO SNOT APPEAR TO HAVE ANY ACUTE DISTRESS AT THIS TIME. WBC AT 17.1 AND NOTED THE GLUCOSE AT 135. AWAITING ORDERS AT THIS TIME. GAABISAI AT BEDSIDE AND SECURTIY HAS BEEN MAINTAINED.
--- NOTE | 2019-01-19 09:45 | NUR ---
PATIENT GIVEN ATIVAN ORDRED AND HAS HAD A TREATMENT FOR HER BREATHING. KELSIE IS ANXIOUS AT TIMES AND IS VERY CONSISTANT ON HER ANXIETY AND HAS BEEN WITH ASTHMA A CHILD. PATIENT HAS BEEN OOB AND TOLERATE DWELL. SHE ATE WELL AT THEMEAL AND WITH GAURTRACY AT BEDSIDE AND SECURITY HAS BEEN MAINTAINED. HELD THE BP MEDICATION DUE TO LOW BP THIS AM. WILL CONTINE TO MONITOR.
[2019-01-19 09:46] VITALS: BP 93/51
[2019-01-19 11:16] VITALS: Ht 149.9 cm; Wt 127.0 kg
[2019-01-19 12:32] VITALS: BP 99/68
--- NOTE | 2019-01-19 13:05 | NUR ---
CALLED FOR SHADI THE PATIENT HAS AN ITCHY RASH TO MENG ARMS AND BELIEVES IT IS FROM THE MRS HARIS FOR USE ON FOOD. SHE WS OFFERED ATARAX BUT REFUSED AND STATES SHE CAN NO SWALLOW THE WATER TO TAKE THE PILL. ORDERED JEAN TIME ONE FOR THE PATIENT. WILL MONITOR FOR EFFECTIVENESS
--- NOTE | 2019-01-19 14:42 | NUR ---
BENADRYL EFFECTIVE IN RELIEVING THE ITCHING. WILL CONTINUE TO MONITOR.
--- NOTE | 2019-01-19 16:24 | NUR ---
TOLERATE DOOB WIT PT AND NO NEED TO DO ANY FURTHER WORK WITH THE PATEINT SHE HAS NO GATE PROBLEMS OR SIGNS OF WEAKNESS.
--- NOTE | 2019-01-19 16:54 | NUR ---
PATIENT STATES RASH IS GONE NOW. BENADRYL WAS EFFECIVE.
[2019-01-19 18:26] VITALS: BP 114/72
--- NOTE | 2019-01-19 18:51 | NUR ---
REQUESTED ATAIVAN AND NORCO AND GAVE THE NORCO AND RETURNED FOR THE ATIVAN. PATIENT STATES ON AND OFF PAIN TO [facility] CHEST AND ANXIETY.
--- NOTE | 2019-01-19 20:09 | NUR ---
PT RECIEVED AAO REG RESP NO SOB V/S STABLE,ON 2L N/C SAT 97%,KEPT CLEAN AND DRY TO TOUCH,MADE COMFORTABLE IN BED,NO PAIN REPORTED AT THIS TIME,CALL LIGHT EASY REACHD AND WILL CONTINUE TO MONITOR.
--- NOTE | 2019-01-19 21:20 | NUR ---
CALL TO DR BANUELOS AND MADE AWARE OF PATIENT WANTING AMBIEN FOR SLEEP,DR BANUELOS CALLED AND ORDER TO GIVE 10 MG PO AMBIEN PRN,ORDER ENTERED WAITING FOR THE PHARMACY TO TRANSCRIBE.
[2019-01-19 22:15] VITALS: BP 118/68
--- NOTE | 2019-01-20 01:10 | NUR ---
PT SLEEPING SOUNDLY AND WILL CONTINUE TO MONITOR.
[2019-01-20 05:50] VITALS: BP 101/55
--- NOTE | 2019-01-20 06:19 | NUR ---
PT HAD ARESTING NIGHT NO CHANGE AT THIS TIME,KEPT CLEAN AND DRY TO TOUCH AND WILL CONTINUE TO MONITOR.
--- NOTE | 2019-01-20 08:00 | NUR ---
SHIFT ASSESSMENT DONE. PATIENT A/A/OX4; TELE#5; SR-ST; HR 110; DENIED CHEST PAIN. NO SOB THIS TIME. BREATHING SOUND DIMINISHED ABRAHAM BASES; WHEEZING SOUND AUSCULATED AT ABRAHAM UPPER LOBES. O2 SAT 96% ON 2L VIA N/C. RT PROTOCOL. BI-PAP AND N/C ALTERNATED. OCCASIONAL PRODUCTIVE COUGH W/ SMALL LIGHT GREENISH SPUTUM. IVHL'D TO R HAND. PATENT W/ NS FLUSH. OBESITY W/ TRACE EDEMA. AMBULATED ON GAIT. DENIED PAIN NOW. CIW OFFICERS IN ROOM.
[2019-01-20 09:14] VITALS: BP 106/68
--- NOTE | 2019-01-20 10:00 | NUR ---
C/O ANXIETY AND WHOLE BODY PAIN ON 12/01. NORCO 5/325 AND ATIVAN 1MG PO GIVEN. CONTINUE MONITOR.
[2019-01-20 12:46] VITALS: BP 111/78
[2019-01-20 18:12] VITALS: BP 110/80
--- NOTE | 2019-01-20 18:55 | NUR ---
CONDITION NO SIGNIFICANT CHANGE. C/O SOB AT TIMES. RT PROTOCOL. BI-PAP AT NIGHT OR PRN. HAD BM X1; VOID X3. ENDORSED CARE TO NOC NURSRE.
--- NOTE | 2019-01-20 19:57 | NUR ---
PT RECIEVED AAO REG RESP NO SOB ON 2L N/C SAT 96%,BED IN THE LOW POSITION AND LOCKED,KEPT CLEAN AND DRY TO TOUCH,HL TO THE RT HAND SITE PATENT AND INTACT, PT ON TELE MONITOR AND IN NSR NO ECTOPY OR CHEST PAIN AT THIS TIME,NO PAIN REPORTE AT THIS TIME,CALL LIGHT EASY REACHED AND WILL CONTINUE TO MONITOR.
[2019-01-20 21:28] VITALS: BP 109/72
--- NOTE | 2019-01-20 23:05 | NUR ---
PT SLEEPING SOUNDLY AND WILL CONTINUE TO MONITOR.
--- NOTE | 2019-01-20 23:15 | NUR ---
PT SLEEPING SOUNDLY AND WILL CONTINUE TO MONITOR.
[2019-01-21 05:54] VITALS: BP 110/78
--- NOTE | 2019-01-21 06:38 | NUR ---
PT HAD A RESTING NIGHT NO CHANGE AT THIS TIME,WILL CONTINUE TO MONITOR.
--- NOTE | 2019-01-21 07:45 | NUR ---
A+OX4, NO RESPIRATORY DISTRESS NOTED, APPAEARS TO BE SLEEPING, TELE 5, PULSES MODERATE AND EQUAL ABRAHAM, TRACE EDEMA BLE, LUNG SOUNDS CONGESTED, 2L NC, BOWEL SOUNDS ACTIVE, VOIDING FREELY, GENERALIZED WEAKNESS, SKIN INTACT, IV IN LAC SALINE LOCKED, SITE WNL.
[2019-01-21 09:38] VITALS: BP 115/76
[2019-01-21 09:56] VITALS: BP 115/76
--- NOTE | 2019-01-21 10:17 | NUR ---
PT RESTING IN BED, NO RESPIRATORY DISTRESS NOTED, COMPLAINING OG GENERALIZED PAIN, REQUESTING NORCO PO, NORCO PO GIVEN, GAURDS AT BEDSIDE, CALL LIGHT WITHIN REACH. PT EDUCATED ON DC INSTRUCTIONS, WITNESSED PT SIGN ALL DC FORMS. DC PACKET STAPLED AND GIVEN TO DAR. DAR NOTIFIED THAT PT READY FOR DC WHEN TRANSPORT CAN BE ARRANGED.
--- NOTE | 2019-01-21 10:18 | NUR ---
PT STATES THAT SHE IS ON CONT OXYGEN 2L NC @ [facility] AND HAS HER CONCENTRAOR AT BEDSIDE. CHARGE NURSE NOTIFIED.
--- NOTE | 2019-01-21 11:51 | NUR ---
PT RESTING IN BED, COMPLAINING OF ANXIETY, REQUESTING ATIVAN PO, ATIVAN PO GIVEN, CALL LIGHT WITHIN REACH. 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
--- NOTE | 2019-01-21 12:31 | NUR ---
IV REMOVED WITH CATHETER INTACT, SITE WNL, GAUZE AND TAPE PLACED ON SITE, TELE REMOVED AND RETURNED TO [facility]. TRANSPORT HERE AT TAKE PT OFF UNIT VIA WC ESCORTED BY RETROFIT INSTALLER WITH ALL BELONGINGS.
== END 2019-01-21 12:37 | disposition other institution (70) | DRG 189 ==
LOC: ED 15:49 → DU 17:45 → IC 17:45 → DU 20:35
PROVIDERS: Emergency Medicine; ADMIT Internal Medicine
PROC: 5A09357 Assistance with Respiratory Ventilation, Less than 24 Consecutive Hours, Continuous Positive Airway Pressure (ICD-10-PCS; principal; 2019-01-18)
DX: J96.01 Acute respiratory failure with hypoxia (principal); J45.901 Unspecified asthma with (acute) exacerbation; Z68.43 Body mass index [BMI] 50.0-59.9, adult; J44.1 Chronic obstructive pulmonary disease with (acute) exacerbation; F41.9 Anxiety disorder, unspecified; G47.33 Obstructive sleep apnea (adult) (pediatric); E66.01 Morbid (severe) obesity due to excess calories; Z88.3 Allergy status to other anti-infective agents; Z88.8 Allergy status to other drugs, medicaments and biological substances; I50.9 Heart failure, unspecified; Z91.19 Patient's noncompliance with other medical treatment and regimen
CPT/HCPCS: 36600; 97116-GP; G0378; J1200; J1644; J2060; J2270; J2920; J2930; J3475; J7613; J7620; J7626; Q0161